=== PATIENT | male | born 1955 | race Caucasian/White ===

== ENCOUNTER 2018-12-20 11:28 | Outpatient (CLI) | payer BC, SELFPAY ==
--- NOTE | 2018-12-20 11:25 | DI.RAD_ITS ---
SYMPTOMS/DIAGNOSIS: LEFT KNEE PAIN LEFT KNEE: Three views. No priors. There is narrowing in the medial femorotibial joint space and the patellofemoral joint. Periarticular spurring is seen involving all three joint compartments. There is chondrocalcinosis present. An orthopedic staple is seen in the medial tibial plateau. No acute fracture or dislocation is seen. Vascular calcifications are present in the soft tissues. IMPRESSION: Moderate arthritic changes of the left knee.
== END 2018-12-20 11:48 ==
PROVIDERS: PCP Emergency Medicine; Visit Provider Orthopaedic Surgery
DX: M25.562 Pain in left knee (principal); M17.12 Unilateral primary osteoarthritis, left knee
CPT/HCPCS: 73562

== ENCOUNTER 2019-04-01 11:44 | Outpatient (CLI) | payer BC, SELFPAY ==
[2019-04-01 12:29] LABS: HCT 46.1 % (40.0-50.0); HGB 15.7 g/dL (13.5-17.5); Mean Corp. HGB Concentration 34.1 g/dL (32.0-36.0); Mean Corpuscular Hemoglobin 31.9 pg (27.0-33.0); Mean Corpuscular Volume 93.7 fL (80-95); Mean Platelet Volume 10.6 fL (8.0-11.0); Platelet Count 211 x1000/uL (130-400); RBC 4.92 m/cumm (4.50-6.00); RBC Distribution Width 12.5 % (11.8-14.1); White Blood Cell Count 5.37 k/cumm (4.4-10.8)
[2019-04-01 12:43] LABS: Prothrombin Time 9.8 sec (9.3-11.0)
[2019-04-01 13:11] LABS: ALT 36 U/L (12-78); AST 23 U/L (15-37); Albumin 3.9 g/dL (3.4-5.0); Alkaline Phosphatase 41 U/L (46-116); Anion Gap 12.3 mmol/L (3-11); BUN 15 mg/dL (7-18); Bilirubin, Total 0.8 mg/dL (0.2-1.0); CO2 23.7 mmol/L (21.0-32.0); CREATININE 0.68 mg/dL (0.70-1.30); Calcium 9.2 mg/dL (8.5-10.1); Chloride 103 mmol/L (98-107); GGT 44 U/L (15-85); Glucose 92 mg/dL (70-100); Potassium 4.2 mmol/L (3.5-5.1); Sodium 139 mmol/L (136-145); TSH 0.99 uIU/mL (0.358-3.74); Total Protein 6.9 g/dL (6.4-8.2)
== END 2019-04-01 12:04 ==
PROVIDERS: PCP Emergency Medicine; Visit Provider Emergency Medicine
DX: F10.10 Alcohol abuse, uncomplicated (principal); F10.20 Alcohol dependence, uncomplicated; E05.90 Thyrotoxicosis, unspecified without thyrotoxic crisis or storm
CPT/HCPCS: 36415; 80053; 85027; 82977; 84443; 85610

== ENCOUNTER 2020-02-16 16:13 | Emergency (ER) | payer BC, SELFPAY ==
[2020-02-16 16:15] VITALS: BP 159/88; PULSE 79; RESP 14; TEMP 36.4; O2SAT 98
[2020-02-16] MEDS: Doxycycline Hyclate 100 MG CAP 200 MG PO (16:50)
--- NOTE | 2020-02-16 16:51 | ED.GENADUL_ITS ---
Discharge Plan Disposition Patient Disposition: HOME Condition: Stable Discharge Details Chief Complaint: RashLesion Clinical Impression: Tick bite of abdomen Primary Care Provider: David Dominique ED Provider: Cassie Prakash Home Meds and New Rx's Prescriptions: Continued amlodipine 10 mg tablet 10 mg PO DAILY Qty: 90 RF: 3 losartan 100 mg tablet 100 mg PO DAILY Qty: 90 RF: 3 ibuprofen 600 MG tablet 600 mg PO Q6H PRN Qty: 180 RF: 0 sertraline 100 mg tablet 100 mg PO DAILY Qty: 90 RF: 0 naltrexone 50 mg tablet 50 mg PO DAILY Qty: 90 RF: 3 multivitamin [Multi-Day] 1 EACH tablet 1 tab PO DAILY RF: 0 Discharge Instructions Instructions: Lyme Disease (ED), Tick Bite (ED) Additional Instructions: Wash area with soap and water once or twice daily and apply topical antibiotic ointment and a Band-Aid to the wound. Observe for any signs or symptoms of Lyme disease as discussed. Specifically observe for headache, joint pain, fatigue, fever or rash as discussed. Please review information regarding Lyme. You received doxycycline 200 mg today in attempts to prevent Lyme disease. As discussed please avoid and use additional sun precaution if exposed to sun due to risk of burning in the next 3 days. Recheck with PCP for any concerning symptoms or return to the emergency room if needed. Return sooner for any worsening or concerns Medical Decision Making Is a 64-year-old patient presenting for a tick bite embedded into the left flank of the abdomen. Patient is asymptomatic at this time. Tick seems to have been embedded for 1 day although patient has been working in the yard for several days and it is possible that this to has been embedded for greater than 48 hours therefore will give prophylactic dose of doxycycline. Tick removed partially with head embedded. Area prepped, less than 1 cc of lidocaine focally, 0.5 cm superficial skin removed with tick embedded. Patient tolerated with no diff iculty. Antibiotic and dressing placed. Discussed doxycycline side effects including sun exposure. Patient reports his understanding. Information regarding tick bites discussed, signs and symptoms for which patient should observe discussed. Discussed option of tick testing. Patient declines at this time. The patient was stable and requested discharge. Prior to discharge, my usual and customary return precautions were reviewed with the patient - this included follow-up instructions and reasons to return to the Emergency Department if conditions worsens, does not improve as expected, or other new concerns arise. HPI General Date/Time Provider Initiated Documentation: 02/16/20 16:14 . HPI Narrative: This is a 64-year-old patient presenting for concerns of a tick bite. Patient reports tick bite to the left flank area. Patient reports he has been working in his yard for the last several days. Patient noted a tick bite this afternoon. Unable to fully remove at home. Patient reports he is asymptomatic otherwise. No mental status changes. No headache, dizziness, nausea, vomiting, fever, chills, body ache. No joint pain. Denies rash. Patient does have a mild amount of erythema surrounding the tick bite. Patient denies any fatigue. Energy normal. No chest pain, difficulty breathing. No other concerns or complaints. Related Data Home Medications Medication Instructions Recorded Confirmed ibuprofen 600 mg PO Q6H PRN #180 tab-cap 03/27/15 02/16/20 multivitamin [Multi-Day] 1 tab PO DAILY 05/10/15 02/16/20 amlodipine 10 mg tablet 10 mg PO DAILY #90 tab 07/01/19 02/16/20 losartan 100 mg tablet 100 mg PO DAILY #90 tab 08/09/19 02/16/20 sertraline 100 mg tablet 100 mg PO DAILY #90 tab 11/29/19 02/16/20 naltrexone 50 mg tablet 50 mg PO DAILY #90 tab 12/07/19 02/16/20 Previous Rx's Medication Instructions Recorded amlodipine 10 mg tablet 10 mg PO DAILY #90 tab 07/01/19 losartan 100 mg tablet 100 mg PO DAILY #90 tab 08/09/19 sertraline 100 mg tablet 100 mg PO DAILY #90 tab 11/29/19 naltrexone 50 mg tablet 50 mg PO DAILY #90 tab 12/07/19 Allergies Allergy/AdvReac Type Severity Reaction Status Date / Time codeine Allergy Mild SKIN RASH Verified 02/16/20 16:20 hydrochlorothiazide AdvReac Intermediate Profuse Verified 02/16/20 16:20 diaphoresis General Stated Complaint: RashLesion DYLAN: 4 Review of Systems All systems reviewed & are unremarkable except as noted in HPI and below PFSH Surgical History (Updated 03/29/19 @ 16:46 by Mariluz Lewis) Appendectomy Arthroplasty of knee left 1981 right 1998 Colonoscopy - MAC (05/30/13) 2007; TUBULAR ADENOMA 05/30/13 Repair, ACL LEFT Replacement of total knee joint (05/16/15) RIGHT KNEE/DR. JOSUE Family History Mother Personal history of malignant neoplasm Father Acute ill-defined cerebrovascular disease Grandfather Heart disease Grandfather No problems noted. Grandmother No problems noted. Grandmother No problems noted. Social History Smoking/Tobacco Use Status: Never Alcohol Intake: former Substance use type: does not use Details: alcohol free for months now Do you feel safe at home: Yes Do you feel safe in your relationship?: Yes Exam Narrative Exam Narrative: CONST: Healthy appearing patient, in no acute distress. Well hydrated. Alert and oriented. HENMT: Head nomocephalic, normal to inspection. Atraumatic. Hearing grossly normal. EYES: General normal appearance. Alignment normal. Eyelids normal. Conjunctiva normal. NECK: Normal visual inspection. FROM. Trachea midline. No Midline tenderness. CHEST: Normal insepection of the chest. RESP: Normal respiratory effort. Speaking full sentences. No cough. No audible wheezing. No retractions. CARDIO: No JVD. MUSCULOSKELETAL: Normal Gait. FROM of all extremities. SKIN: Normal. Dry. No rashes. Patient has a left lateral abdominal tick bite noted. Tick is embedded. 1 cm of surrounding erythema. NEURO: Alert and awake. Speech clear. PSYCH: Normal affect. Cooperative. Course Vital Signs Vital signs: Vital Signs Temperature 36.4 C L 02/16/20 16:15 Pulse 79 02/16/20 16:15 Respiratory Rate 14 02/16/20 16:15 Blood Pressure 159/88 H 02/16/20 16:15 Pulse Oximetry 98 02/16/20 16:15 Temperature 36.4 C L 02/16/20 16:15 Temperature Source Skin 02/16/20 16:15 Pulse 79 02/16/20 16:15 Respiratory Rate 14 02/16/20 16:15 Respiratory Effort 02/16/20 16:20 Blood Pressure 159/88 H 02/16/20 16:15 Blood Pressure Position Sitting 02/16/20 16:15 Pulse Oximetry 98 02/16/20 16:15 Oxygen Delivery Method Room Air 02/16/20 16:15 Oxygen Flow Rate 0 02/16/20 16:15 Pain Level 2 02/16/20 16:15 Comment 02/16/20 16:15 Procedures Foreign Body Removal Time Out Performed: yes Site: left Description of foreign body: insect (Tick) Sedation/Analgesia: other (1% lidocaine) Technique: incision made to facilitate removal (11 blade to remove superficial skin with embedded tick ) Complications: none
== END 2020-02-16 17:00 | disposition home or self-care (01) ==
PROVIDERS: Emergency Provider Physician Assistant; PCP Emergency Medicine
DX: S31.151A Open bite of abdominal wall, left upper quadrant without penetration into peritoneal cavity, initial encounter (principal); W57.XXXA Bitten or stung by nonvenomous insect and other nonvenomous arthropods, initial encounter; I10 Essential (primary) hypertension
CPT/HCPCS: 99283

== ENCOUNTER → 2020-07-27 08:00 | Outpatient (BNVA) | payer MEDICARE, OTHER, SELFPAY | PROVIDERS: PCP Emergency Medicine; Referring Provider Emergency Medicine; Visit Provider Physical Therapy Assistant | DX: Z12.11 Encounter for screening for malignant neoplasm of colon (principal); Z86.010 Personal history of colon polyps ==

== ENCOUNTER 2020-08-02 02:26 | Outpatient (CLI) | payer MEDICARE, OTHER, SELFPAY ==
[2020-08-03 22:07] LABS: SARS-CoV-2 RNA Source Nasal/Nares
[2020-08-03 22:08] LABS: SARS-CoV-2 RNA Not Detected (NotDetected)
== END 2020-08-02 02:46 ==
PROVIDERS: PCP Emergency Medicine; Visit Provider Surgery
DX: Z01.818 Encounter for other preprocedural examination (principal)
CPT/HCPCS: U0003

== ENCOUNTER 2020-08-06 06:50 | Day surgery (SDC) | payer MEDICARE, OTHER, SELFPAY ==
--- NOTE | 2020-08-06 06:56 | W.COLOREPORT ---
Date of service: 08/06/20 Time of Service: : Colonoscopy Report Date of procedure: 08/06/20 Pre-op diagnosis general: Hx of polyps Post-op diagnosis procedure note: same (one polyp) Procedure: Colonoscopy with polypectomy Surgeon: Santa Centeno Anesthesia proc note operative: other (General/ASA 2/Sussy Langley CRNA) Estimated blood loss (mL): 2 Pathology: other (Ascending colon) Complications: None Disposition: same day Indications: The patient is here for Colonoscopy pre-op. His last screening was in 2012 and was remarkable for adenomatous polyps He has no family history of colon cancer. He has not had any bowel habit changes. -Discussed colonoscopy bowel prep as well as the procedure. Discussed possible complications of the procedure to include bleeding, pain, perforation, missed small lesion/polyp, sore throat, aspiration and adverse reaction to the medications. Questions were answered to patient?s satisfaction. No guarantees were implied or given. Prep: Miralax/Dulcolax Procedure Start Time: : Procedure End Time: : Retraction Time: 16 minutes Findings: one small polyp Procedure Description: After informed consent was obtained the patient was taken to the procedure room and placed in a left decubitous position. Monitors were applied and a time out was done. The patients name, date of , procedure, allergies to medications and metal in their body was reviewed. The patient was then sedated. Once sedated and comfortable a rectal exam was done. External exam was normal. Internal exam revealed a normal sphincter tone and no palpable masses. The prostate felt smooth, slightly enlarged. The scope was then introduced and retro-flexed. No internal hemorrhoids were identified. The scope was then advanced to the cecum without difficulty. The ileocecal valve and appendiceal orifice were identified. The prep was good. The scope was then slowly retracted over 16 minutes back into the rectum. Polyps were removed with cold forceps in the ascending colon. There were a few scattered diverticula in the sigmoid colon. The scope was removed and the patient was woken up and taken back to Same day surgery in stable condition. The patient tolerated the procedure well and there were no immediate complications. Follow up: The patient should follow up in 5 years unless they develop changes in bowel habits or other new gastrointestinal complaints.
--- NOTE | 2020-08-06 06:57 | W.PM.DSUDISC ---
Discharge Plan Disposition Patient Disposition: HOME Condition: Good Discharge Details Reason For Visit: Hx of polyps/Colonoscopy Attending Provider: Santa Centeno Primary Care Provider: David Dominique Home Meds and New Rx's Prescriptions: Continued ibuprofen 600 MG tablet 600 mg PO Q6H PRN Qty: 180 RF: 0 disulfiram 250 mg tablet 250 mg PO DAILY Qty: 90 RF: 3 amlodipine 10 mg tablet 10 mg PO DAILY Qty: 90 RF: 3 multivitamin [Multi-Day] 1 EACH tablet 1 tab PO DAILY RF: 0 losartan 100 mg tablet 100 mg PO HS RF: 0 Discontinued polyethylene glycol 3350 17 gram/dose powder 238 g PO ONCE Qty: 238 RF: 0 bisacodyl [Dulcolax (bisacodyl)] 5 mg tablet,delayed release (DR/EC) 5 mg PO ONCE Qty: 4 RF: 0 Discharge Instructions Instructions: Diverticulosis (DC), Colorectal Polyps (DC) Additional Instructions: Findings: 1 small polyp a few scattered diverticula in the left sided colon (sigmoid) Follow up: 5 years most likely Please call if you develop: fevers >101.5 Nausea or Vomiting Abdominal pain that is not transient DAY SURGERY UNIT POST ENDOSCOPY INSTRUCTIONS 1. Because there will be medication in your system for the next 24 hours, you may feel a little sleepy. Your coordination will be affected. Therefore: a. Do not drive or operate dangerous equipment for 24 hours. b. Do not drink alcohol beverages for 24 hours (not even beer). c. Plan to go home and rest for the day. 2. Generally there are no restrictions on your activity after a day or so has gone by, but you may feel a bit fatigued for a few days. 3 After you arrive home you may have a light meal and return to a normal diet as you can tolerate it without feeling sick to your stomach. 4. After surgery, you may feel pain or discomfort. This should be only transient, but if it persists please contact your doctor. 5. If there are any questions regarding the findings of your procedure, please feel free to contact your doctor. 6. If you are unable to contact your doctor with a problem, contact the hospital at [phone]. 7. Continue all your regular medications unless directed otherwise. I understand the above instructions and have no questions. Signature of Patient or Responsible Adult Escort Date/Time Name of Responsible Adult Escort Signature of Nurse Date/Time Activity:: Activity as Tolerated Diet:: High Fiber diet Discharge Orders Discharge Orders: Discharge Order (Routine); Ordered 08/06/20 Ordered By: Santa Centeno
[2020-08-06 07:30] VITALS: BP 133/89; PULSE 74; RESP 16; TEMP 36.4; O2SAT 99
[2020-08-06] MEDS: Lactated Ringers 1,000 ML 80 ML IV (08:30)
--- NOTE | 2020-08-06 09:34 | BOWEL_PTH ---
PATIENT: Chetan Carcamo LOC: [facility] U#:[id number] AGE/SX: 65/M ROOM: RE08/06/[address]: Santa Centeno MD : 1955 BED: DIS: 08/06/2020 SPEC #: [id number] RECD: 08/06/20 12:50 STATUS: DAYSI REQ #: [id number] RIC: 08/06/20 09:[address]: Santa Centeno DEPT: Surgical Specimen RECD BY: Ginette Umaña ENTERED: 08/06/20 12:51 SP TYPE: Bowel OTHR DR: David Dominique DO Tissues: 1 - BIOPSY BOWEL Procedures: GROSS AND MICRO LEVEL 4 Comments: [id number]
[2020-08-06 10:19] VITALS: BP 125/72; PULSE 61; RESP 17; TEMP 36.1; O2SAT 96
== END 2020-08-06 10:41 | disposition home or self-care (01) ==
PROVIDERS: PCP Emergency Medicine; Visit Provider Surgery
PROC: 0DJD8ZZ Inspection of Lower Intestinal Tract, Via Natural or Artificial Opening Endoscopic (ICD-10-PCS; CPT 45378; principal; 2020-08-06 09:15)
DX: Z12.11 Encounter for screening for malignant neoplasm of colon (principal); D12.2 Benign neoplasm of ascending colon; I10 Essential (primary) hypertension; F10.10 Alcohol abuse, uncomplicated; Z86.010 Personal history of colon polyps
CPT/HCPCS: 45380; 88305; J2001

== ENCOUNTER 2020-08-07 10:36 | Outpatient (REF) | payer MEDICARE, OTHER, SELFPAY ==
[2020-08-07 14:23] LABS: Anion Gap 6.5 mmol/L (3-11); BUN 15 mg/dL (7-18); CO2 27.5 mmol/L (21.0-32.0); CREATININE 0.89 mg/dL (0.70-1.30); Calcium 9.4 mg/dL (8.5-10.1); Chloride 106 mmol/L (98-107); Glucose 101 mg/dL (74-106); Potassium 4.4 mmol/L (3.5-5.1); Sodium 140 mmol/L (136-145); TSH 0.49 uIU/mL (0.36-3.74); Vitamin B12 1512 pg/mL (193-986)
[2020-08-08 15:59] LABS: PSA, Screening 0.8 ng/mL (0-4.5)
== END 2020-08-07 10:56 ==
LOC: NCHCN 10:36
PROVIDERS: PCP Emergency Medicine; Visit Provider Emergency Medicine
DX: E03.9 Hypothyroidism, unspecified (principal); I10 Essential (primary) hypertension; G62.9 Polyneuropathy, unspecified; Z12.5 Encounter for screening for malignant neoplasm of prostate
CPT/HCPCS: 80048; 84153; 82607; 84443

== ENCOUNTER 2020-09-03 03:00 | Outpatient (CLI) | payer MEDICARE, OTHER, SELFPAY ==
[2020-09-04 19:02] LABS: COVID-19 RT-PCR UVMMC Result Negative (Negative)
== END 2020-09-03 03:20 ==
PROVIDERS: PCP Emergency Medicine; Visit Provider Emergency Medicine
DX: Z20.828 Contact with and (suspected) exposure to other viral communicable diseases (principal); Z11.59 Encounter for screening for other viral diseases
CPT/HCPCS: U0003

== ENCOUNTER 2020-09-10 09:23 | Outpatient (CLI) | payer MEDICARE, OTHER, SELFPAY ==
--- NOTE | 2020-09-10 08:45 | DI.RAD_ITS ---
EXAM: XR KNEE LT 4V AP,LAT,STEPHEN,PAT CLINICAL HISTORY: left knee pain. TECHNIQUE: 2D digital imaging was performed. COMPARISON: CR RIGHT KNEE LIMITED 1 OR 2 VIEW from 05/16/2015 FINDINGS: There is no evidence of acute fracture. There is a moderate-sized joint effusion in the suprapatella r bursa. There is a surgical staple device in the medial tibia at the junction of the epiphysis and metaphysis. There are calcifications seen adjacent to the medial aspect of the medial femoral condyl e. Possibly related to prior MCL injury and repair. The main finding is advanced osteoarthritic degenerative changes in all 3 compartments involving join t space narrowing and osteophytes and there is also an element of chondrocalcinosis evident. Degener ative subarticular cyst is seen in the sub spinous tibial plateau. Vascular calcification is noted. IMPRESSION: Advanced degenerative changes. Joint effusion. Previous surgery as described above. Chondrocalcino sis. I note this patient has a prosthesis in the opposite-right knee performed May 2015. DATA REPOSITORY: RADIATION DOSE DELIVERED:
== END 2020-09-10 09:43 ==
PROVIDERS: PCP Emergency Medicine; Referring Provider Emergency Medicine; Visit Provider Student in an Organized Health Care Education/Training Program
DX: M17.12 Unilateral primary osteoarthritis, left knee (principal); M11.262 Other chondrocalcinosis, left knee; M25.462 Effusion, left knee; M25.562 Pain in left knee; Z96.651 Presence of right artificial knee joint; M65.341 Trigger finger, right ring finger; R20.0 Anesthesia of skin; R20.2 Paresthesia of skin
CPT/HCPCS: 20610; 99214; 73564; J1040

== ENCOUNTER 2020-09-18 09:10 | Day surgery (SDC) | payer MEDICARE, SELFPAY ==
[2020-09-18 09:19] VITALS: BP 141/73; PULSE 63; RESP 18; TEMP 36.2; O2SAT 100
--- NOTE | 2020-09-18 09:56 | W.PM.DSUDISC ---
Discharge Plan Disposition Patient Disposition: HOME Condition: Good Discharge Details Reason For Visit: RRF Trigger Finger Attending Provider: Julio Lopez Primary Care Provider: David Dominique Home Meds and New Rx's Prescriptions: New acetaminophen [Tylenol] 325 mg Tablet 650 mg PO Q6H PRN PRNQty: 60 RF: 0 Continued disulfiram 250 mg tablet 250 mg PO DAILY Qty: 90 RF: 3 amlodipine 10 mg tablet 10 mg PO DAILY Qty: 90 RF: 3 losartan 100 mg tablet 100 mg PO HS Qty: 90 RF: 4 multivitamin [Multi-Day] 1 EACH tablet 1 tab PO DAILY RF: 0 garlic 500 mg Capsule 500 mg PO DAILY Qty: 30 RF: 0 ibuprofen 600 MG tablet 600 mg PO Q6H PRN Qty: 180 RF: 0 Discharge Instructions Stand Alone Forms: John Potter Finger Release Referrals: Julio Lopez MD [ [facility] STAFF PHYSICIAN] - Activity:: Elevate Remove Dressings/Wound Care:: 48 hours Shower/Bathe:: 48 hours Diet:: As Tolerated Discharge Orders Discharge Orders: Discharge Order (Routine); Ordered 09/18/20 Ordered By: Julio Lopez DS: Diagnosis Discharge Diagnosis (1) Trigger finger, right ring finger: Status: Acute
[2020-09-18] MEDS: Sodium Bicarbonate 50 MEQ/50 ML VIAL (10:43)
--- NOTE | 2020-09-18 11:09 | ROE_ITS ---
Date of service: 09/18/20 Time of Service: 11:09 Operative Note Operative Note DATE OF PROCEDURE: 09/18/20 PRE-OP DIAGNOSIS: Right Ring Finger Trigger Finger POST-OP DIAGNOSIS: same PROCEDURE: Trigger Finger Release - Right Ring Finger SURGEON: Julio Lopez ANESTHESIA: local PATHOLOGY: none sent COMPLICATIONS: None Patient was transported to: same day Patient's condition: stable Indications: I have seen Chetan in clinic for symptoms of a trigger finger. The catching, clicking, locking, and pain limited function. The diagnosis of trigger finger was evident. The symptoms had not responded to conservative measures. I discussed trigger finger release with the patient. I reviewed the risks of the procedure to include, but not limited to, bleeding, infection, pain, stiffness, incomplete release, damage to nerves or vessels, continued catching, recurrence. Despite these risks, the patient elected to proceed. Findings: There was a tightened and thickened A1 larry which was released. The flexor tendons were inspected and the patient was able to move the finger without any catching, clicking, or locking. Procedure Description: Chetan was greeted in the preoperative holding area where the correct side was identified and marked. The consent was reviewed with the patient and signed. All questions were answered. Chetan was taken back to the operating room. The patient was placed into the supine position on the operating room table with the right arm on an arm board. All bony prominences were well padded. No prophylactic antibiotics were administered since this was a clean, elective hand surgical case. The right arm was then prepped with Chloraprep and draped in a standard fashion with stockinette and extremity drape. A timeout to confirm correct identity, side and site, procedure, allergies, anesthesia, and medical concerns was performed. The surgical site was marked as a longitudinal incision directly over the A1 larry of the involved digit. This was confirmed with palpation during finger flexion. This area, overlying the metacarpal head, was then anesthetized with 1% Lidocaine. The patient tolerated this well and once the anesthetic had setup, the procedure began. A longitudinal incision was made through skin only, approximately 1cm. The deep tissues were dissected bluntly. Once the A1 larry and flexor tendons were identified the soft tissue including neurovascular structures were retracted medially and laterally. There were no crossing str uctures over the A1 larry. The proximal edge of the larry was identified and the larry was incised with tenotomy scissors. There was a release of the tendons once this was fully released. The tendons were then removed from the wound and inspected. Excess synovium was resected. The tendons were then returned and the patient was asked to move the finger into deep flexion and back to extension. There was no recreation of the pre-operative symptoms. The hand was then once more inspected for any A0 larry or area of possible constriction. The wound was then irrigated and the skin was closed with a 4-0 Nylon. This was dressed with gauze and a Conform dressing. The patient tolerated the procedure well and was returned to the Same Day Surgery area in a stable condition suffering no known complication.
== END 2020-09-18 11:21 | disposition home or self-care (01) ==
PROVIDERS: PCP Emergency Medicine; Visit Provider Student in an Organized Health Care Education/Training Program
PROC: (CPT 26055; principal; 2020-09-18 11:30)
DX: M65.341 Trigger finger, right ring finger (principal)
CPT/HCPCS: 26055

== ENCOUNTER → 2021-07-22 14:37 | Outpatient (BNVA) | payer MEDICARE, SELFPAY | PROVIDERS: PCP Emergency Medicine; Referring Provider Emergency Medicine; Visit Provider Student in an Organized Health Care Education/Training Program | DX: M17.12 Unilateral primary osteoarthritis, left knee (principal) | CPT/HCPCS: 20610; J1040 ==

== ENCOUNTER → 2021-11-21 10:21 | Outpatient (BNVA) | payer MEDICARE, SELFPAY | PROVIDERS: PCP Family Medicine; Referring Provider Family Medicine; Visit Provider Student in an Organized Health Care Education/Training Program | DX: M17.12 Unilateral primary osteoarthritis, left knee (principal) | CPT/HCPCS: 20610; J1040 ==

== ENCOUNTER → 2022-01-28 13:55 | Outpatient (BNVA) | payer MEDICARE, SELFPAY | PROVIDERS: PCP Family Medicine; Referring Provider Family Medicine; Visit Provider Nurse Practitioner Adult Health | DX: G56.02 Carpal tunnel syndrome, left upper limb (principal); G56.22 Lesion of ulnar nerve, left upper limb | CPT/HCPCS: 95908; 99203; 99214 ==

== ENCOUNTER → 2022-02-06 08:04 | Outpatient (BNVA) | payer MEDICARE, SELFPAY | PROVIDERS: PCP Family Medicine; Referring Provider Family Medicine; Visit Provider Student in an Organized Health Care Education/Training Program | DX: G56.02 Carpal tunnel syndrome, left upper limb (principal); G56.22 Lesion of ulnar nerve, left upper limb | CPT/HCPCS: 99212 ==

== ENCOUNTER 2022-02-14 01:40 | Outpatient (CLI) | payer MEDICARE, SELFPAY ==
[2022-02-14 16:55] LABS: ALT 49 U/L (16-63); AST 19 U/L (15-37); Albumin 3.8 g/dL (3.4-5.0); Alkaline Phosphatase 51 U/L (46-116); Anion Gap 11.7 mmol/L (3-11); BUN 19 mg/dL (7-18); Bilirubin, Total 0.7 mg/dL (0.2-1.0); CO2 23.3 mmol/L (21.0-32.0); CREATININE 1.1 mg/dL (0.70-1.30); Calcium 8.9 mg/dL (8.5-10.1); Calculated LDL 138 mg/dL (<100); Chloride 104 mmol/L (98-107); Cholesterol 208 mg/dL (<200); Glucose 90 mg/dL (74-106); HDL Cholesterol 54 mg/dL (40-60); Potassium 4.2 mmol/L (3.5-5.1); Sodium 139 mmol/L (136-145); Total Protein 6.4 g/dL (6.4-8.2); Triglyceride 84 mg/dL (<150)
[2022-02-17 10:44] LABS: PSA, Screening 0.7 ng/mL (<=4.5)
[2022-02-17 11:13] LABS: Hepatitis C Ab w Rflx HCV PCR Negative (Negative)
[2022-02-17 11:40] LABS: HIV-1/2 Ag & Ab Screen Negative (Negative)
== END 2022-02-14 01:41 | disposition home or self-care (01) ==
LOC: LBO 01:40
PROVIDERS: PCP Family Medicine; Visit Provider Family Medicine
DX: I10 Essential (primary) hypertension (principal); E78.5 Hyperlipidemia, unspecified; Z12.5 Encounter for screening for malignant neoplasm of prostate; Z11.59 Encounter for screening for other viral diseases; Z11.4 Encounter for screening for human immunodeficiency virus [HIV]
CPT/HCPCS: 36415; 80053; 80061; 84153; 86803; 87389

== ENCOUNTER 2022-06-11 09:44 | Day surgery (SDC) | payer MEDICARE, SELFPAY ==
--- NOTE | 2022-06-11 07:46 | W.PM.DSUDISC ---
Discharge Plan Disposition Patient Disposition: HOME Condition: Good Discharge Details Reason For Visit: Left carpal tunnel syndrome Attending Provider: Julio Lopez Primary Care Provider: Trevor Steel Home Meds and New Rx's Prescriptions: New hydrocodone-acetaminophen 5-325 mg tablet 1 tab PO Q6H PRN (Reason: severe pain) Qty: 4 0RF Rx Instructions: Take one tablet up to every 6 hours as needed for severe postoperative pain acetaminophen 500 mg tablet 500 mg PO Q6H PRN (Reason: pain) Qty: 60 2RF ibuprofen 600 mg tablet 600 mg PO TID PRN (Reason: pain) Qty: 60 0RF Continued atenolol 25 mg tablet 25 mg PO DAILY Qty: 90 3RF losartan 100 mg tablet 100 mg PO DAILY Qty: 90 3RF sildenafil [Viagra] 100 mg tablet 100 mg PO DAILY PRN (Reason: sexual activity) Qty: 6 11RF amlodipine 10 mg tablet 10 mg PO DAILY Qty: 90 3RF disulfiram 250 mg tablet 250 mg PO HS garlic 500 mg Capsule 500 mg PO DAILY Qty: 30 0RF Discontinued ibuprofen 600 mg tablet 600 mg PO Q6H PRN Qty: 90 2RF Discharge Instructions Stand Alone Forms: John Savage Tunnel Release Referrals: Julio Lopez MD [ [facility] STAFF PHYSICIAN] - Equipment/Supplies: Sling Activity:: Elevate Remove Dressings/Wound Care:: 72 hours Shower/Bathe:: 72 hours Diet:: As Tolerated Discharge Orders Discharge Orders: Discharge Order (Routine); Ordered 06/11/22 Ordered By: Lilian Méndez
[2022-06-11 10:15] VITALS: BP 116/80; PULSE 54; RESP 20; TEMP 36.6; O2SAT 99
[2022-06-11] MEDS: Lactated Ringers 1,000 ML 80 ML IV (10:30)
--- NOTE | 2022-06-11 10:46 | W.ANESPRE ---
General Info Date of Service Date Performed: 06/11/22 Height: 5 ft 10 in Weight: 89.9 kg Body Mass Index (BMI): 28.4 Surgical Procedure: Operation Date: 06/11/22 13:25 Proposed Procedure Side Surgeon p Wrist ECTR Left Julio Lopez MD s Cubital Tunnel Release Left Julio Lopez MD Meds Allergies and Home Medications Allergies Allergy/AdvReac Type Severity Reaction Status Date / Time codeine Allergy Mild SKIN RASH Verified 06/10/22 14:44 hydrochlorothiazide AdvReac Intermediate Profuse Verified 06/10/22 14:44 diaphoresis Home Medication Medication Instructions Recorded garlic 500 mg capsule 500 mg PO DAILY #30 caps 09/18/20 amlodipine 10 mg tablet 10 mg PO DAILY #90 tabs 07/19/21 atenolol 25 mg tablet 25 mg PO DAILY #90 tabs 12/16/21 losartan 100 mg tablet 100 mg PO DAILY #90 tabs 02/18/22 sildenafil 100 mg tablet (Viagra) 100 mg PO DAILY PRN sexual 02/18/22 activity #6 tabs disulfiram 250 mg tablet 250 mg PO HS 06/10/22 acetaminophen 500 mg tablet 500 mg PO Q6H PRN pain #60 tabs 06/11/22 hydrocodone 5 mg-acetaminophen 325 1 tab PO Q6H PRN severe pain #4 06/11/22 mg tablet tabs ibuprofen 600 mg tablet 600 mg PO TID PRN pain #60 tabs 06/11/22 Current Visit Medications: Current Medications Generic Name Dose Route Start Last Admin Trade Name Freq PRN Reason Stop Dose Admin Acetaminophen 650 mg 06/11/22 07:40 Acetaminophen 325 Mg Tab PO Q4H PRN PRN Hydrocodone Bitart/Acetaminophen 0 tab 06/11/22 07:40 Hydrocodone 5/Acetaminophen 325 Tab PO Q3H PRN PRN Pain Ringer's Solution 1,000 mls @ 80 mls/hr 06/11/22 06:00 06/11/22 10:30 IV 07/10/22 23:59 80 mls/hr INFUSION EMILY Administration Cefazolin Sodium/Dextrose 2 gm in 50 mls @ 100 mls/hr 06/11/22 06:00 Ancef Duplex IVPB 06/11/22 16:00 PREOP EMILY IV Miscellaneous Supplies 1 each 06/11/22 06:00 Iv Access IV 07/10/22 23:59 DIRECTED EMILY Sodium Chloride 0 ml 06/11/22 06:00 Normal Saline Flush 10 Ml Syr IV 07/10/22 23:59 PRN PRN Sodium Chloride 0 ml 06/11/22 06:00 Normal Saline 10 Ml Vial IJ 07/10/22 23:59 DIRECTED PRN Sterile Water 0 ml 06/11/22 06:00 Water,Injection,Sterile 10 Ml Vial IJ 07/10/22 23:59 DIRECTED PRN PFSH Active Problems Active Problems: Problem Status Onset Code Basal cell carcinoma C44.91 Ulnar neuropathy of left upper extremity G56.22 Left carpal tunnel syndrome G56.02 Left knee DJD M17.12 Tubular adenoma ~07/2020 D36.9 Peripheral neuropathy G62.9 Hyperlipidemia E78.5 Essential hypertension 07/12/13 I10 Depressive disorder F32.9 Cervical spine disease 12/26/14 M48.9 Alcohol abuse F10.10 Surgical History Surgical History Appendectomy Arthroplasty of knee right 1998 Colonoscopy - MAC (05/30/13) 2007; TUBULAR ADENOMA 05/30/13 H/O hand surgery 2020-trigger finger Repair, ACL LEFT Replacement of total knee joint (05/16/15) RIGHT KNEE/DR. JOSUE Tobacco Smoking/Tobacco Use Status: Current every day Tobacco Type: smokeless tobacco Smokeless tobacco user: snuff Passive smoking exposure: Yes Second hand exposure: Yes Alcohol Alcohol Intake: former Substance Use Substance use: Never Substance use type: does not use Details: alcohol free for months now Vital Signs and Lab Results Vital Signs Most Recent Vital Signs in EMR: Most Recent Vital Signs Temp Pulse Resp BP Pulse Ox 36.6 C 54 L 20 116/80 99 06/11/22 10:15 06/11/22 10:15 06/11/22 10:15 06/11/22 10:15 06/11/22 10:15 Lab Results Blood Type / Crossmatch: No Data to Display Complete Blood Count: No Data to Display Complete Metabolic Panel: No Data to Display Liver Function Panel: No Data to Display Coagulation Panel: No Data to Display Cardiac Panel: No Data to Display Arterial Blood Gas: No Data to Display Venous Blood Gas: No Data to Display Pancreas Panel: No Data to Display Thyroid Panel: No Data to Display Infectious Disease: No Data to Display Blood Cultures: No Data to Display Toxicology Panel: No Data to Display Imaging and Studies Imaging and Studies Study information below may be from another EMR and interpreted by another provider. Please see original notes in EMR for more complete details. MRI Summary: 10/2014: narrowing at c6-7, c6-7 Anesthesia Assessment and Plan Anesthesia History Personal History: No History of Anesthesia Complications Family History: No Family History of Anesthesia Complications Exercise Tolerance Exercise Tolerance: Metabolic Equivalents>4 Cardiac & Pulmonary Exam Cardiac Exam: Normal S1/S2 Heart Sounds Pulmonary Exam: Clear Bilateral Breath Sounds Implantable Cardiac Device Does patient have a Pacemaker or an ICD?: No Airway Exam Known Difficult Airway: No Mallampati Class: 1 Mouth Opening: Normal (> 3cm) Thyromental Distance: Greater than 3 cm Neck Range of Motion: Limited ROM Neck Circumference: Normal Teeth Condition: Normal Dentition ASA Classification ASA Score: ASA 2 Emergency Case?: No NPO Status NPO Status: NPO Clears >2 hours, Solids >8 hours Anesthesia Plan Resuscitation Status: Full Code Anesthesia Technique: General Anesthesia Airway Planned: Natural Airway Monitors Used: Standard Monitors Preoperative Comments:: 67 yo male for carpal tunel/cubital tunel. Sig PMHx: peripheral neuropathy, HTN, depressive, former EtOH abuse, s/p cervical spine surg r/t narrowing tip of thumb numb on left and sometimes left hand will go numb with neck extension, smokeless tobacco. Previous Anes: without issues, Previous airway: none on file.
[2022-06-11 11:01] VITALS: BMI 28.4
--- NOTE | 2022-06-11 11:14 | W.PREOPHP ---
Assessment and Plan Assessment and plan (1) Left carpal tunnel syndrome: Status: Acute Assessment and plan: Chetan is a 67-year-old who has known carpal tunnel syndrome about the left side. He also has some mild cubital tunnel syndrome which we are not going to treat surgically today. This was discussed with him at length. I reviewed carpal tunnel release with him once again. I discussed the technical details of carpal tunnel release and that I perform an endoscopic release, but would make a larger, open, incision if necessary for visualization. I discussed the risks of the procedure to include, but not limited to, bleeding, infection, palmar pain, stiffness, damage to nerves, damage to vessels, damage to tendons, weakness, recurrence, and incomplete release. Given these risks, Chetan desires to proceed. History of Present Illness History of Present Illness Chief Complaint: Left Carpal Tunnel Syndrome Narrative: Chetan is a 67-year-old who has known carpal tunnel syndrome of the left side. He also has some mild cubital tunnel syndrome which has been diagnosed underproduction studies. At the previous office visit we discussed all the options. He was interested in proceeding with cubital tunnel syndrome just in case. However, his symptoms are very mild. Therefore, after discussion today we will proceed only with the left carpal tunnel release. He has had no other changes to his medical health. He denies any chest pain or shortness of breath. He continues have numbness and tingling and pain about the left hand. Review of Systems All systems reviewed & are unremarkable except as noted in HPI and below PFSH All Active Problems Basal cell carcinoma (Acute) Remote, chest wall Ulnar neuropathy of left upper extremity (Acute) Left carpal tunnel syndrome (Acute) Left knee DJD (Chronic) Depo-Medrol injection: 09/10/2020; 07/22/21; 11/21/21 Tubular adenoma (Acute ~07/2020) 2019-Dr. Christian Centeno, repeat colo 5 years-2024 Peripheral neuropathy (Acute) 2021-mild, predominantly on plantar surface of feet, idiopathic Hyperlipidemia (Acute) Essential hypertension (Acute 07/12/13) Depressive disorder (Acute) Cervical spine disease (Acute 12/26/14) Surgery magnidottir 01/26 Alcohol abuse (Acute) RECOVERING, on Antabuse, doing well as of 12/2021 Surgical History Appendectomy Arthroplasty of knee right 1998 Colonoscopy - MAC (05/30/13) 2007; TUBULAR ADENOMA 05/30/13 H/O hand surgery 2020-trigger finger Repair, ACL LEFT Replacement of total knee joint (05/16/15) RIGHT KNEE/DR. JOSUE Family History Mother , 69 Personal history of malignant neoplasm Father Acute ill-defined cerebrovascular disease Grandfather Heart disease Sister No problems noted. Brother No problems noted. Daughter No problems noted. Social History Smoking/Tobacco Use Status: Current every day Tobacco Type: smokeless tobacco Tobacco: How many years used: 25 Smokeless tobacco user: snuff Second Hand Exposure: Yes Smoking risk assessment performed?: Yes Alcohol Intake: former Drug use: Never Substance use type: does not use Details: alcohol free for months now Caregiver/Support person: No Household members: spouse Housing: house Communication Needs: None Pets and animals: No Sexually active: Yes Do you think of yourself as: straight/heterosexual Current gender identity: male What is your relationship status?: Panel score (0-1 are the most socially isolated patients): 1 What type of physical activity do you participate in: walking Duration: 15-30 minutes/day Special teo needs: No Do you feel safe at home: Yes Do you feel safe in your relationship?: Yes Meds Allergies and Home Medications Allergies Allergy/AdvReac Type Severity Reaction Status Date / Time codeine Allergy Mild SKIN RASH Verified 06/10/22 14:44 hydrochlorothiazide AdvReac Intermediate Profuse Verified 06/10/22 14:44 diaphoresis Home Medications Medication Instructions Recorded Confirmed Type garlic 500 mg capsule 500 mg PO DAILY #30 caps 09/18/20 06/11/22 Rx amlodipine 10 mg tablet 10 mg PO DAILY #90 tabs 07/19/21 06/11/22 Rx atenolol 25 mg tablet 25 mg PO DAILY #90 tabs 12/16/21 06/11/22 Rx losartan 100 mg tablet 100 mg PO DAILY #90 tabs 02/18/22 06/11/22 Rx sildenafil 100 mg tablet (Viagra) 100 mg PO DAILY PRN sexual 02/18/22 06/10/22 Rx activity #6 tabs disulfiram 250 mg tablet 250 mg PO HS 06/10/22 06/11/22 History acetaminophen 500 mg tablet 500 mg PO Q6H PRN pain #60 tabs 06/11/22 Rx hydrocodone 5 mg-acetaminophen 325 1 tab PO Q6H PRN severe pain #4 06/11/22 Rx mg tablet tabs ibuprofen 600 mg tablet 600 mg PO TID PRN pain #60 tabs 06/11/22 Rx Exam Resp Auscultation: clear to auscultation bilaterally Cardio Rate: regular rate Rhythm: regular rhythm Results Last Vital Signs Temp 36.6 C 06/11/22 10:15 Pulse 54 L 06/11/22 10:15 Resp 20 06/11/22 10:15 BP 116/80 06/11/22 10:15 Pulse Ox 99 06/11/22 10:15
[2022-06-11] MEDS: ceFAZolin 2 GM/50 ML BAG IVPB (11:15)
[2022-06-11] MEDS: Bupivacaine 0.25% Pres-Free W/EPI 30 ML VIAL (11:27)
[2022-06-11 11:33] VITALS: BP 104/19; PULSE 54; RESP 17; TEMP 36.5; O2SAT 94
[2022-06-11 12:04] VITALS: BP 127/83; PULSE 50; RESP 16; TEMP 36.5; O2SAT 98
--- NOTE | 2022-06-11 12:08 | W.ANESPOSTOP ---
Postoperative Evaluation Date, Time and Location Date Performed: 06/11/22 Time Performed: 12:08 Patient Location: Day Surgery Unit Vital Signs Most Recent Imported Vital Signs: Most Recent Vital Signs Temp Pulse Resp BP Pulse Ox 36.5 C 50 L 16 127/83 98 06/11/22 12:04 06/11/22 12:04 06/11/22 12:04 06/11/22 12:04 06/11/22 12:04 Pain Score Most Recent Pain Score: Most Recent Pain Score Pain Level 0 06/11/22 12:04 Assessment Mental Status: Awake (Alert & Oriented to Patient Baseline) Airway and Respiratory Function: Patent airway with normal (patient baseline) respiratory exam Cardiovascular Function: Hemodynamically Stable Hydration Status: Adequately Hydrated Nausea & Vomiting: No Nausea or Vomiting Pain: Pt. Denies Any Pain Peripheral Nerve Block: Patient did not receive a nerve block
--- NOTE | 2022-06-11 16:00 | W.PM.OP ---
Date of service: 06/11/22 Time of Service: 12:00 Operative Note Operative Note DATE OF PROCEDURE: 06/11/22 PRE-OP DIAGNOSIS: Left Carpal Tunnel Syndrome POST-OP DIAGNOSIS: same PROCEDURE: Left Endoscopic Carpal Tunnel Release SURGEON: Julio Lopez ANESTHESIA TYPE: General:No Airway Refer to Anesthesia Record ESTIMATED BLOOD LOSS: 0 PATHOLOGY: none sent TOURNIQUET TIME: 6 COMPLICATIONS: None Patient was transported to: same day Patient's condition: stable Indications: I have seen Chetan in clinic for symptoms of carpal tunnel syndrome. The numbness, tingling, and pain limited function. Clinical exam findings confirmed the diagnosis of carpal tunnel syndrome. Nonoperative measures such as bracing, time, activity modifications had been tried but disability and pain persisted. I discussed carpal tunnel release with the patient. I reviewed the risks of the procedure to include, but not limited to, bleeding, infection, pain, stiffness, incomplete release, damage to nerves or vessels, persistent numbness, recurrence. Despite these risks, the patient elected to proceed. Findings: There was tightened carpal tunnel. This was dilated and released successfully with the endoscopic with increased space within the tunnel. The antebrachial fascia was released proximally freeing the median nerve at the wrist. Procedure Description: Chetan was greeted in the preoperative holding area where the correct side was identified and marked. The consent was reviewed with the patient and signed. The history and physical was updated. All questions were answered. A was taken back to the operating room. The patient was placed into the supine position on the operating room table with the left arm on an arm board. A nonsterile tourniquet was placed high onto the arm. All bony prominences were well padded. Prophylactic antibiotics in the form of Cefazolin were administered. The left arm was then prepped with Chloraprep and draped in a standard fashion with stockinette and extremity drape. A timeout to confirm correct identity, side and site, procedure, allergies, anesthesia, and medical concerns was performed. The surgical site was marked in the volar wrist creases in line with the radial border of the fourth ray. This area was anesthetized with approximately 6cc of 1% Lidocaine. The limb was then exsanguinated with an Esmarch. The skin was incised with a 15 blade, approximately 1cm. The skin only was cut and the deeper tissue was dissected bluntly with a tenotomy scissor, avoiding passing nerve and venous structures. The fascia was penetrated and opened bluntly. A two-prong skin hook was placed under this proximal fascial edge. A series of hamate finders were used to identify and dilate the carpal tunnel. Synovial elevator was used to free synovial attachments to the underside of the transverse carpal ligament. My thumb was kept in the palm to [place] the distal extent of the carpal tunnel and correctly position the hand. The [employer] endoscope was inserted without difficulty and without resistance. Excellent visualization showed horizontally running fibers of the transverse carpal ligament (TCL). The distal extent of the TCL was visualized and the end of the scope palpated with the thumb. The blade was elevated and withdrawn from distal to proximal. The TCL was split into two flaps. The endoscope was reinserted to confirm complete release and any remnant ligament was incised. The scope was withdrawn and the proximal aspect of the carpal tunnel was grossly inspected and appeared release with the median nerve visible. The antebrachial fascia at the level of the wrist was then freed from the overlying skin and then the underlying median nerve with blunt dissection. This was transected longitudinally for about 3cm proximal to the wrist incision. The wound was then irrigated with easy flow of irrigant distally and proximally. The incision was closed with a single 4-0 Nylon suture. The wound was dressed with Xeroform, Gauze, Kerlix and Daniel. The tourniquet was deflated with the initial dressing and held with some pressure. Blood flow returned easily to all digits with capillary refill less than 2 seconds. The patient tolerated the procedure well and was returned to the Same Day Surgery area in a stable condition suffering no known complication.
== END 2022-06-11 12:35 | disposition home or self-care (01) ==
PROVIDERS: PCP Nurse Practitioner Family; Visit Provider Student in an Organized Health Care Education/Training Program
PROC: 01N54ZZ Release Median Nerve, Percutaneous Endoscopic Approach (ICD-10-PCS; CPT 29848; principal; 2022-06-11 13:15)
DX: G56.02 Carpal tunnel syndrome, left upper limb (principal)
CPT/HCPCS: 29848; J0690; J1100; J1885; J2405

== ENCOUNTER → 2022-06-20 08:37 | Outpatient (BNVA) | payer MEDICARE, SELFPAY | PROVIDERS: PCP Nurse Practitioner Family; Referring Provider Nurse Practitioner Family; Visit Provider Student in an Organized Health Care Education/Training Program | DX: Z47.89 Encounter for other orthopedic aftercare (principal); G56.02 Carpal tunnel syndrome, left upper limb ==

== ENCOUNTER → 2022-08-18 08:20 | Outpatient (BNVA) | payer MEDICARE, SELFPAY | PROVIDERS: PCP Nurse Practitioner Family; Referring Provider Nurse Practitioner Family; Visit Provider Student in an Organized Health Care Education/Training Program | DX: M17.12 Unilateral primary osteoarthritis, left knee (principal) | CPT/HCPCS: 20610; J1040 ==

== ENCOUNTER 2022-12-11 02:16 | Outpatient (CLI) | payer MEDICARE, SELFPAY ==
[2022-12-11 15:01] LABS: HCT 45.6 % (40.0-50.0); HGB 15.9 g/dL (13.5-17.5); MCH 30.8 pg (27.0-33.0); MCHC 34.9 % (32.0-36.0); MCV 88 fL (80-95); MPV 9.9 fL (8.0-11.0); Platelet Count 231 10^3/uL (130-400); RBC 5.17 10^6/uL (4.36-5.78); RDW 12.2 % (11.8-14.1); RDW-SD 39.1 fL; WBC 7.77 10^3/uL (4.4-10.8)
[2022-12-11 16:03] LABS: Anion Gap 4.1 mmol/L (3-11); BUN 16 mg/dL (7-18); CO2 28.9 mmol/L (21.0-32.0); CREATININE 0.9 mg/dL (0.70-1.30); Calcium 9.8 mg/dL (8.5-10.1); Chloride 105 mmol/L (98-107); Estimated GFR 93.61 (mL/min/1.73m2); Glucose 98 mg/dL (74-106); Potassium 4.2 mmol/L (3.5-5.1); Sodium 138 mmol/L (136-145)
== END 2022-12-11 02:17 | disposition home or self-care (01) ==
LOC: LBO 02:16
PROVIDERS: PCP Nurse Practitioner Family; Visit Provider Student in an Organized Health Care Education/Training Program
DX: M25.562 Pain in left knee (principal); M17.12 Unilateral primary osteoarthritis, left knee; Z01.818 Encounter for other preprocedural examination; Z01.812 Encounter for preprocedural laboratory examination
CPT/HCPCS: 36415; 80048; 85027

== ENCOUNTER 2022-12-11 14:33 | Outpatient (CLI) | payer MEDICARE, SELFPAY ==
--- NOTE | 2022-12-11 13:45 | DI.RAD_ITS ---
Exam(s) XR KNEE LT 1V XR STANDING ALIGNMENT EXAM: XR STANDING ALIGNMENT CLINICAL HISTORY: PRE OP L TKA. TECHNIQUE: 2D digital imaging was performed. Standing AP views were performed from the pelvis throu gh the ankles. Lateral left knee COMPARISON: CR XR KNEE LT 1V from 12/11/2022 FINDINGS: BONES: No acute fracture is present. No bony destructive lesion is seen. Leg length discrepancy: JOINTS: Knees: Right: Total knee prosthesis. No surrounding bony lucencies. Left: Staple in medial tibial plateau. Advanced degenerative changes both femoral tibial joints and patellofemoral joint. The ankle joints show bilateral no joint space narrowing, left greater than right.. The hip joints show mild bilateral spurring. SOFT TISSUE: Vascular calcifications. IMPRESSION: Severe degenerative changes left knee.. No significant leg length discrepancy. DATA REPOSITORY: RADIATION DOSE DELIVERED:
== END 2022-12-11 14:34 | disposition home or self-care (01) ==
LOC: DIORS 14:33
PROVIDERS: PCP Nurse Practitioner Family; Referring Provider Nurse Practitioner Family; Visit Provider Physician Assistant
DX: M17.12 Unilateral primary osteoarthritis, left knee (principal); Z01.818 Encounter for other preprocedural examination
CPT/HCPCS: 73560; 77073

== ENCOUNTER 2022-12-17 05:53 | Day surgery (SDC) | payer MEDICARE, SELFPAY ==
[2022-12-17] VITALS (10 sets, daily range): BP systolic 108–141; BP diastolic 66–97; PULSE 49–61; RESP 9–21; TEMP 36.2–36.7; O2SAT 96–100; BMI 29.8
[2022-12-17] MEDS: Lactated Ringers 1,000 ML 80 ML IV (06:28)
[2022-12-17] MEDS: Celecoxib 200 MG CAP 400 MG PO (06:32)
[2022-12-17] MEDS: Gabapentin 300 MG CAP PO (06:32)
[2022-12-17] MEDS: Acetaminophen 500 MG TAB 1000 MG PO (06:32)
--- NOTE | 2022-12-17 07:05 | W.ANESPRE ---
General Info Date of Service Date Performed: 12/17/22 Height: 5 ft 10 in Weight: 94.3 kg Body Mass Index (BMI): 29.8 Surgical Procedure: Operation Date: 12/17/22 07:40 Proposed Procedure Side Surgeon p Knee Total Arthroplasty, Cementless PS Left Julio Lopez MD Meds Allergies and Home Medications Allergies Allergy/AdvReac Type Severity Reaction Status Date / Time codeine Allergy Mild SKIN RASH Verified 12/17/22 05:59 hydrochlorothiazide AdvReac Intermediate Profuse Verified 12/17/22 05:59 diaphoresis Home Medication Medication Instructions Recorded garlic 500 mg capsule 500 mg PO DAILY #30 caps 09/18/20 atenolol 25 mg tablet 25 mg PO DAILY #90 tabs 12/16/21 losartan 100 mg tablet 100 mg PO DAILY #90 tabs 02/18/22 sildenafil 100 mg tablet (Viagra) 100 mg PO DAILY PRN sexual 02/18/22 activity #6 tabs disulfiram 250 mg tablet 250 mg PO HS 06/10/22 amlodipine 10 mg tablet 10 mg PO DAILY #90 tabs 07/10/22 omeprazole 20 mg capsule,delayed 20 mg PO DAILY #90 caps 08/20/22 release acetaminophen 500 mg tablet 1,000 mg PO TID #90 tabs 12/17/22 aspirin 81 mg tablet,delayed 81 mg PO BID #60 tabs 12/17/22 release celecoxib 200 mg capsule 200 mg PO BID #60 caps 12/17/22 dexamethasone 4 mg tablet 4 mg PO DAILY #2 tabs 12/17/22 gabapentin 300 mg capsule 300 mg PO QHS #14 caps 12/17/22 oxycodone 5 mg tablet 5 mg PO Q4H PRN pain #20 tabs 12/17/22 pantoprazole 40 mg tablet,delayed 40 mg PO DAILY #30 tabs 12/17/22 release Current Visit Medications: Current Medications Generic Name Dose Route Start Last Admin Trade Name Freq PRN Reason Stop Dose Admin Acetaminophen 1,000 mg 12/17/22 06:00 12/17/22 06:32 Acetaminophen 500 Mg Tab PO 12/17/22 16:00 1,000 mg PREOP EMILY Administration Celecoxib 400 mg 12/17/22 06:00 12/17/22 06:32 Celecoxib 200 Mg Cap PO 12/17/22 16:00 400 mg PREOP EMILY Administration Gabapentin 300 mg 12/17/22 06:00 12/17/22 06:32 Gabapentin 300 Mg Cap PO 12/17/22 16:00 300 mg PREOP EMILY Administration Tranexamic Acid 1,000 mg/ 60 mls @ 360 mls/hr 12/17/22 06:00 Sodium Chloride IVPB 12/17/22 16:00 PREOP EMILY Ringer's Solution 1,000 mls @ 80 mls/hr 12/17/22 06:00 12/17/22 06:28 IV 01/15/23 23:59 80 mls/hr INFUSION EMILY Administration Cefazolin Sodium/Dextrose 2 gm in 50 mls @ 100 mls/hr 12/17/22 06:00 Ancef Duplex IVPB 01/15/23 23:59 PREOP EMILY IV Miscellaneous Supplies 1 each 12/17/22 06:00 Iv Access IV 01/15/23 23:59 DIRECTED EMILY Sodium Chloride 0 ml 12/17/22 06:00 Normal Saline Flush 10 Ml Syr IV 01/15/23 23:59 PRN PRN Sodium Chloride 0 ml 12/17/22 06:00 Normal Saline 10 Ml Vial IJ 01/15/23 23:59 DIRECTED PRN Sterile Water 0 ml 12/17/22 06:00 Water,Injection,Sterile 10 Ml Vial IJ 01/15/23 23:59 DIRECTED PRN PFSH Active Problems Active Problems: Problem Status Onset Code GERD (gastroesophageal reflux disease) K21.9 Basal cell carcinoma C44.91 Ulnar neuropathy of left upper extremity G56.22 Left carpal tunnel syndrome G56.02 Left knee DJD M17.12 Tubular adenoma ~07/2020 D36.9 Peripheral neuropathy G62.9 Hyperlipidemia E78.5 Essential hypertension 07/12/13 I10 Depressive disorder F32.9 Cervical spine disease 12/26/14 M48.9 Alcohol abuse F10.10 Surgical History Surgical History Appendectomy Arthroplasty of knee right 1998 Colonoscopy - MAC (05/30/13) 2007; TUBULAR ADENOMA 05/30/13 H/O hand surgery 2020-trigger finger Repair, ACL LEFT Replacement of total knee joint (05/16/15) RIGHT KNEE/DR. JOSUE Tobacco Smoking/Tobacco Use Status: Current every day Tobacco Type: smokeless tobacco Smokeless tobacco user: snuff Passive smoking exposure: Yes Second hand exposure: Yes Alcohol Alcohol Intake: former Substance Use Substance use: Never Substance use type: does not use Vital Signs and Lab Results Vital Signs Most Recent Vital Signs in EMR: Most Recent Vital Signs Temp Pulse Resp BP Pulse Ox 36.4 C L 60 16 137/78 99 12/17/22 06:07 12/17/22 06:07 12/17/22 06:07 12/17/22 06:07 12/17/22 06:07 Lab Results Blood Type / Crossmatch: No Data to Display Complete Blood Count: White Blood Count 7.77 10^3/uL (4.4-10.8) 12/11/22 14:57 Red Blood Count 5.17 10^6/uL (4.36-5.78) 12/11/22 14:57 Hemoglobin 15.9 g/dL (13.5-17.5) 12/11/22 14:57 Hematocrit 45.6 % (40.0-50.0) 12/11/22 14:57 Platelet Count 231 10^3/uL (130-400) 12/11/22 14:57 Complete Metabolic Panel: Sodium 138 mmol/L (136-145) 12/11/22 14:57 Potassium 4.2 mmol/L (3.5-5.1) 12/11/22 14:57 Chloride 105 mmol/L (98-107) 12/11/22 14:57 Carbon Dioxide 28.9 mmol/L (21.0-32.0) 12/11/22 14:57 BUN 16 mg/dL (7-18) 12/11/22 14:57 Creatinine 0.9 mg/dL (0.70-1.30) 12/11/22 14:57 Est GFR (CKD-EPI 2020) 93.61 (mL/min/1.73m2) 12/11/22 14:57 Calcium 9.8 mg/dL (8.5-10.1) 12/11/22 14:57 Glucose 98 mg/dL (74-106) 12/11/22 14:57 Liver Function Panel: No Data to Display Coagulation Panel: No Data to Display Cardiac Panel: No Data to Display Arterial Blood Gas: No Data to Display Venous Blood Gas: No Data to Display Pancreas Panel: No Data to Display Thyroid Panel: No Data to Display Infectious Disease: No Data to Display Blood Cultures: No Data to Display Toxicology Panel: No Data to Display Imaging and Studies Imaging and Studies Study information below may be from another EMR and interpreted by another provider. Please see original notes in EMR for more complete details. MRI Summary: 10/2014: narrowing at c6-7, c6-7 Anesthesia Assessment and Plan Anesthesia History Personal History: No History of Anesthesia Complications Family History: No Family History of Anesthesia Complications Exercise Tolerance Exercise Tolerance: Metabolic Equivalents>4 Pertinent Negatives Pertinent Negatives: No Symptoms of GERD, No Major Cardiovascular Symptoms or Complaints, No Major Pulmonary Symptoms or Complaints and No History of CVA/TIA Cardiac & Pulmonary Exam Cardiac Exam: Normal S1/S2 Heart Sounds Pulmonary Exam: Clear Bilateral Breath Sounds Implantable Cardiac Device Does patient have a Pacemaker or an ICD?: No Airway Exam Known Difficult Airway: No Mallampati Class: 1 Mouth Opening: Normal (> 3cm) Thyromental Distance: Greater than 3 cm Neck Range of Motion: Limited ROM Neck Circumference: Normal Teeth Condition: Normal Dentition ASA Classification ASA Score: ASA 2 Emergency Case?: No NPO Status NPO Status: NPO Clears >2 hours, Solids >8 hours Anesthesia Plan Resuscitation Status: Full Code Anesthesia Technique: Spinal Anesthesia Airway Planned: Natural Airway Pain Management: Surgeon and patient request nerve block Monitors Used: Standard Monitors Preoperative Comments:: Previous anesthetic: Sig PMHx: peripheral neuropathy, HTN, depressive, former EtOH abuse, s/p cervical spine surg r/t narrowing tip of thumb numb on left and sometimes left hand will go numb with neck extension, smokeless tobacco. Previous Anes: without issues, Previous airway: none on file.
--- NOTE | 2022-12-17 07:23 | W.PM.DSUDISC ---
Date of service: 12/17/22 Time of Service: 07:23 Discharge Plan Disposition Patient Disposition: Home Condition: Good Discharge Details Reason For Visit: L TKR Attending Provider: Julio Lopez Primary Care Provider: Trevor Steel Home Meds and New Rx's Prescriptions: New acetaminophen 500 mg tablet 1,000 mg PO TID Qty: 90 3RF aspirin 81 mg tablet,delayed release (DR/EC) 81 mg PO BID Qty: 60 0RF celecoxib 200 mg capsule 200 mg PO BID Qty: 60 0RF pantoprazole 40 mg tablet,delayed release (DR/EC) 40 mg PO DAILY Qty: 30 0RF dexamethasone 4 mg tablet 4 mg PO DAILY Qty: 2 0RF gabapentin 300 mg capsule 300 mg PO QHS Qty: 14 0RF oxycodone 5 mg tablet 5 mg PO Q4H MDD 6 tabs PRN (Reason: pain) Qty: 20 0RF Continued atenolol 25 mg tablet 25 mg PO DAILY Qty: 90 3RF losartan 100 mg tablet 100 mg PO DAILY Qty: 90 3RF sildenafil [Viagra] 100 mg tablet 100 mg PO DAILY PRN (Reason: sexual activity) Qty: 6 11RF omeprazole 20 mg capsule,delayed release(DR/EC) 20 mg PO DAILY Qty: 90 3RF amlodipine 10 mg tablet 10 mg PO DAILY Qty: 90 3RF disulfiram 250 mg tablet 250 mg PO HS garlic 500 mg Capsule 500 mg PO DAILY Qty: 30 0RF Discontinued acetaminophen 500 mg tablet 500 mg PO Q6H PRN (Reason: pain) Qty: 60 2RF ibuprofen 600 mg tablet 600 mg PO TID PRN (Reason: pain) Qty: 60 0RF Discharge Instructions Additional Instructions: Total Knee Discharge Instructions Activity: The most important activity is to walk and to work on gentle motion (both flexion and extension). You should try to take short walks a few times a day. It is important that when resting you work on keeping the knee straight. Avoid putting a pillow behind the knee as this will encourage flexion. Work on range of motion exercises as provided by Physical Therapy. - Start outpatient physical therapy within 2 weeks. - You should wear the SINDHU hose on both legs for 2 weeks. You may remove these at night. You may also use any compression sock in place of the SINDHU hose. - Utilize [employer] to review exercises, see videos on exercises and obtain basic information pertaining to your surgery and your recovery. Dressing: Remove the Daniel wrap by 2 days after your surgery and put on the SINDHU stocking given to you from the hospital. Keep the surgical dressing (underneath the DANIEL wrap) in place for at least one week. After the first week it may be removed and replaced with light gauze and tape or nothing. The wound and dressing may get wet after 3 days but avoid soaking the dressing or otherwise it will need to be changed. Many people prefer covering the dressing with cling wrap (saran wrap) to minimize it from getting soaked. If it gets wet, just pat dry. If it starts to peel off then it will need to be changed. Medications: - You should take Tylenol and anti-inflammatory Celebrex as your primary pain control medications. If the Celebrex is too expensive or not covered, please call the office for another alternative (Advil/Ibuprofen or Naproxen/Aleve) - You have been prescribed a stronger pain medication Oxycodone for breakthrough pain, take as needed as prescribed. - You have also been prescribed a stomach acid reduction agent Pantoprozole to help reduce stomach acid and reflux. - You have been prescribed Gabapentin to take at night for restlessness and nerve pain. - You will be taking Aspirin 81mg twice a day for DVT prevention unless instructed otherwise. - You have also been prescribed Decadron to take to control post-operative nausea and pain. You will start this tomorrow. - If you have constipation you should take Colace or Miralax (both [id number]). It takes most people 3-4 days to have a bowel movement. Follow-up: 2 weeks If you have any acute concerns or questions, please do not hesitate to contact the office at [phone]. You may contact Dr. Lopez with any questions after hours through the hospital at [phone] or on his cell phone at [phone]. Referrals: Julio Lopez MD [ [facility] STAFF PHYSICIAN] - Equipment/Supplies: Walker Activity:: Activity as Tolerated Shower/Bathe:: 72 hours Diet:: As Tolerated Discharge Orders Discharge Orders: Discharge Order (Routine); Ordered 12/17/22 Ordered By: Julio Lopez DS: Diagnosis Discharge Diagnosis (1) Left knee DJD: Status: Chronic
[2022-12-17] MEDS: ceFAZolin 2 GM/50 ML BAG IVPB (07:55)
--- NOTE | 2022-12-17 08:27 | W.ANESNERVE ---
Nerve Block Single Injection Procedure Date and Time Date Performed: 12/17/22 Procedure Start: 07:19 Location Where Procedure Performed Procedure Location: Day Surgery Unit Reason Performed: Postoperative Analgesia Requesting Provider: Julio Lopez Timeout Performed Timeout Performed: Yes Monitoring Used ECG, Blood Pressure and SpO2 Sterility Sterility: Hand Hygiene, Surgical Cap, Surgical Mask, Sterile Gloves and Chlorhexidine Sedation Given During Procedure Sedation Given (Indicate Dose Given): No Sedation given Patient Mental Status Patient Mental Status: Awake Nerve Block 1st Nerve Block: Laterality: Left Block Type: Adductor Canal Ultrasound Image Saved?: Yes Needle / Catheter Used: 100mm SonoPlex II Local Anesthetic Bolus (Indicate Dose Given): Lidocaine used for local infiltration of skin, Injected in 3-5ml increments after negative blood aspiration and Bupivacaine 0.25% Dose:: 20 ml Additives (Indicate Dose Given): None Ultrasound: Sterile probe cover and gel used Nerve Stimulator: Not Used Paresthesia: None Procedure Tolerated: No Complications and Patient tolerated well Procedure Outcome: Successful Performed By: Chetan Erickson
--- NOTE | 2022-12-17 09:48 | ROE_ITS ---
Date of service: 12/17/22 Time of Service: 09:48 Operative Note Operative Note PRE-OP DIAGNOSIS: Left Knee Osteoarthritis POST-OP DIAGNOSIS: same PROCEDURE: Left Total Knee Replacement SURGEON: Julio Lopez [employer]TRANS EQUIPMENT OPERATOR: Lebron Farmer ANESTHESIA TYPE: Spinal Refer to Anesthesia Record ESTIMATED BLOOD LOSS: 100 PATHOLOGY: none sent TOURNIQUET TIME: 0 COMPLICATIONS: None Patient was transported to: PACU Patient's condition: stable Implants: 1. Depuy Attune Cementless Posterior Stabilized Femoral Component, Size 7 2. Depuy Attune Cementless Rotating Platform Tibial Component, Size 7 3. Depuy Attune 7x5mm PS/RP Poly 4. Depuy Attune Patellar Component, Size 38 Indications: I have seen Chetan in clinic for symptoms of knee arthritis, confirmed with radiographic findings. He has exhausted nonoperative methods and was having significant limitations in daily function and desired better function and less pain. I discussed the technical details of a knee replacement. I explained the risks of the procedure to include, but not limited to, bleeding, infection, pain, stiffness, fracture, damage to nerves and vessels, damage to muscles and tendons, loosening, need for repeat procedure, blood clot and cardiopulmonary demise. Despite these risks, Chetan elected to proceed. Findings: There was wearing of cartilage, mostly of the medial femur and tibia but generalized chondromalacia throughout the lateral and patellofemoral spaces. Procedure Description: Chetan was greeted in the preoperative holding area where the correct side was identified and marked. The consent was reviewed with the patient and signed. The history and physical was updated. All questions were answered. Preoperative medications were administered: Acetaminophen 1000mg, Celebrex 400mg, and Gabapentin 300mg. An adductor canal block was then administered by the anesthesia team in the PACU. Chetan was taken back to the operating room. A spinal anesthestic was then administered. The patient was placed into the supine position on the operating room table. A nonsterile tourniquet was placed high onto the leg but only used for cementing. Posts were placed for positioning during the proce dure. All bony prominences were well padded. Prophylactic antibiotics in the form of Cefazolin were administered. 1g of Tranxemic Acid was given intravenously within 30 minutes of incision. The left leg was then prepped with Chloraprep and draped in a standard fashion with impervious stockinette. A second prep with Chloraprep was performed prior to application of Iodine impregnated skin protection. A timeout to confirm correct identity, side and site, procedure, allergies, anesthesia, and medical concerns was performed. With the knee in some flexion, a midline incision was made overlying the knee. Full thickness skin flaps were raised once the extensor mechanism was encountered. These were raised medially and laterally. Any bleeding was controlled with electrocautery. Once the extensor mechanism was fully exposed, a medial parapatellar arthrotomy was performed in a flexed position. All bleeding from the arthrotomy and the geniculate arteries was coagulated. A medial subperiosteal peel was performed with electrocautery to the midcoronal plane. The fat pad was removed while keeping the patellar tendon protected. The anterior distal femur synovium was removed for later visualization. The ACL and PCL were resected and the anterior horn of the lateral meniscus was transected. The knee was then flexed with the patella everted. There was significant scarring to the prepatellar fat. Using a step drill, and based on preoperative templating, the femoral canal was entered. This was done with a step drill without any difficulty. The intramedullary distal femoral cut guide was inserted, set to a 5 degree valgus cut and 9mm cut thickness. The distal femoral cut guide was then held in position and pinned. With the soft tissues protected, the distal cut was p erformed. This was passed over a few times to ensure a planar cut. I then turned attention to the tibia. The extramedullary guide was placed onto the leg. The distal aspect was slid medial to adjust for position of center of ankle and stay in line with shaft of the tibia. Approximately 3-5 degrees of posterior slope was kept in the proximal cutting guide. The center of the guide was aligned with the PCL. The stylus was used to assess cut thickness. The medial side, most involved side, was set for a 5mm cut. This was then held in position and pinned into place with 2 additional pins and a cross pin for stability. The medial and lateral collateral ligaments were protected and the cut was performed. With this completed, it was assessed and noted to be of appropriate dimensions. The guide was removed. A spacer block was inserted and the knee was brought into extension. The 5mm spacer block provided full extension, without hyperextension and with stability of both the medial and lateral collateral ligaments was assessed. The pins from the femur and the tibia were then removed. The distal femur was then sized. The anterior stylus was placed onto the lateral ridge of the anterior femur. This indicated a size 7 femur. The external rotation of the guide was adjusted to 0 degrees to match the epicondylar axis, perpendicular to [place]?s line. The 4-in-1 cutting guide was the placed. The posterior medial femur cut was evaluated and appeared of good thickness. The spacer block was inserted underneath the cutting guide and stability was confirmed in 90 degrees of flexion. An josh wing was used to confirm appropriate position of the anterior cut to avoid notching. This cutting guide was ensured to be flush on the cut surface and then pinned into place with headed pins. While protecting the soft tissues, quad tendon, and collateral ligaments, the anterior and posterior cuts were performed with a saw. The central two pins were removed and the posterior and anterior chamfers were cut next. The notch-cutting guide was placed. This was pinned to lateralize the femoral component as much as possible while keeping it flush on the cut surface. This w as then pinned into position. A reciprocating saw was used to make the notch cut. A rasp smoothed the cut surfaces. The medial and lateral menisci were removed. A trial femoral component was then inserted, impacted down to the cut surfaces, and the lug holes were drilled. A provisional trial tibial component was placed and the knee was brought through range of motion. There was noted to be excellent extension and flexion. There was no significant instability. The patella was tracking without thumbs. A size 5mm polyethylene component provided the best range of motion and stability with less than 2mm gapping with medial and lateral stress and full extension without significant hyperextension. The tibial cut surface was fully exposed. The tibia was then sized as a 7. The tibia had been previously marked during trialing to correspond to the center of the tibial component to help with rotation. The trial was aligned to this lebron, approximately rotated to the medial 1/3rd of the tibial tubercle. The trial was pinned into place. The tibia was prepared with a reamer and a keel punch and lug holes. The knee was then brought into extension and the patella was measured as 30mm. Using the patellar clamp and cut guide, this was resected to a flat surface with at least 13mm of thickness remaining. The size 38 patella fit the best. This was oriented and then clamped into position. The lugs were drilled. The trial components were removed. The final components were opened on the back table. The periosteal and capsular tissues, especially posteriorly, around the knee were then systematically injected with a periarticular cocktail consisting of 246mg of Ropivacaine, 0.5mg of Epinephrine, 0.08mg of Clonidine, and 30mg of Ketorolac, diluted to 100cc. On the back table, with the implants opened, the cement was mixed. One batch of high viscosity cement was prepared with vacuum assistance. After the cement was ready a small amount was placed on the cut surface of the patella and the patellar button was clamped into position and held. While the cement was hardening, the cementless knee components were placed. Starting with the tibial component, the tibia was subluxed anteriorly and the lug holes of the component were lined up. The tibia was then impacted with an impactor and mallet until the tibial component was in contact with the tibia. Then, the femoral component was inserted. The lug holes were aligned and the component was impacted into position. The final polyethylene was then inserted. The knee was irrigated with Irrisept chlorhexadine solution. This was allowed to sit in the knee for 3 minutes and then it was irrigated out with saline. After the cement had finally cured, approximately 15min, the clamp was removed from the patella and the knee was taken through range of motion. The patella was tracking with a no-thumbs technique. The capsule was then reapproximated with a No. 1 Vicryl at multiple locations. The capsule was finally closed with a No. 2 Stratafix, barbed suture. The second dosing of 1g TXA was started. Deep tissues were then reapproximated with 0 Vicryl and 2-0 Vicryl. The skin was closed with a running 3-0 Monocryl in a subcuticular fashion. This was reinforced with skin glue. A Mepilex silver dressing was applied along with a [id number] AQUILES wrap. A CryoCuff was applied. Chetan was transferred to the hospital bed without difficulty an suffering no apparent complication. Chetan has a good prognosis. Physical therapy will start today and without restrictions, weight-bearing as tolerated. Aspirin 81mg BID will be used for DVT prophylaxis.
[2022-12-17] MEDS: fentaNYL 100 MCG/2 ML VIAL IVP (10:04)
[2022-12-17] MEDS: oxyCODONE 5 MG TAB PO (12:10)
--- NOTE | 2022-12-17 12:15 | W.ANESPOSTOP ---
Postoperative Evaluation Date, Time and Location Date Performed: 12/17/22 Time Performed: 12:10 Patient Location: Day Surgery Unit Vital Signs Most Recent Imported Vital Signs: Most Recent Vital Signs Temp Pulse Resp BP Pulse Ox 36.3 C L 58 L 16 118/76 96 12/17/22 11:07 12/17/22 11:07 12/17/22 11:07 12/17/22 11:07 12/17/22 11:07 Pain Score Most Recent Pain Score: Most Recent Pain Score Pain Level 2 12/17/22 11:07 Assessment Mental Status: Awake (Alert & Oriented to Patient Baseline) Airway and Respiratory Function: Patent airway with normal (patient baseline) respiratory exam Cardiovascular Function: Hemodynamically Stable Hydration Status: Adequately Hydrated Nausea & Vomiting: No Nausea or Vomiting Pain: Pain is Moderate or Severe (Not currently 5/10) Postoperative Pain Management: Pain being addressed with medication Peripheral Nerve Block: Regional nerve block not resolved at time of post operative discharge
--- NOTE | 2022-12-17 13:40 | PT.INIE ---
Date of service: 12/15/22 Time of Service: 11:08 PT Notes Visit Reasons: L TKR Physical Therapy Day Surgery Initial Evaluation Date: 12/17/2022 Referring Doctor: PRIYANKA Gaona PT Orders: PT CONSULT: S/p Ortho surgery. Eval/treat Precautions: WBAT on left LE with AD. Patient Profile/Admitting Diagnosis: Chetan is a 67-year-old male with degenerative joint disease of the left knee and status post left total knee arthroplasty on postoperative day 0. PMHX: Surgical History?(Updated 06/20/22 @ 09:04 by PRIYANKA Gaona) Appendectomy Arthroplasty of knee right 1998 Colonoscopy - MAC (05/30/13) 2007; TUBULAR ADENOMA 05/30/13 H/O hand surgery 2020-trigger finger Repair, ACL LEFT Replacement of total knee joint (05/16/15) RIGHT KNEE/DR. JOSUE Social History/Home Situation: Lives with in a private home with a flight of steps to enter with a rail on one side and a wall on the other side. Bedroom is on the basement but with hand support available on both sides. Admitted all aspects of ADLs prior to surgery although difficulty of mobility ADL performance was worsening due to left knee DJD Equipment Owned/DME: [facility] Subjective: Denies headache, chest pain, and lightheadedness throughout session. Reports 1?2/10 pain in left knee with movement. Objective: General Observation: Supine in bed. AQUILES wraps to left LE. Cryocuff to left knee. TEDs to R leg. Mental Status: Alert and oriented x4 Pain: 1?2/10 in the left knee with AD. ROM: Right Lower Extremity: Hip flexion WFL. Hip abduction WFL. Knee flexion WFL. Ankle dorsiflexion WFL. Ankle plantarflexion WFL. Left Lower Extremity: Hip flexion WFL. Hip abduction WFL. Knee flexion 0 to 100 degrees. Ankle dorsiflexion WFL. Ankle plantarflexion WFL. Strength: Right Lower Extremity: Hip flexors 5/5. Hip abductors 5/5. Knee flexors 5/5. Knee extensors 5/5. Ankle dorsiflexors 5/5. Ankle plantarflexors 5/5. Left Lower Extremity:Hip flexors 4/5. Hip abductors 4/5. Knee flexors 3-/5. Knee extensors 4-/5. Ankle dorsiflexors 5/5. Ankle plantarflexors 5/5. Sensation: Intact as to pain and light touch in bilateral lower extremities Bed Mobility/Transfers: Supine to sit standby assist Sit to stand standby assist Stand to sit standby assist Bed to chair standby assist Gait: 150 feet on level surface ambulation using front wheeled walker with step through gait pattern requiring only standby assist. No LOB. No SOB. Good L quad activation. Balance: Static Sitting: Normal Dynamic Sitting: Normal Static Standing: Fair Dynamic Standing: Fair Special Tests: Mobility Limitations Standardized Measure [facility] AM-PAC 6 clicks Basic Mobility Inpatient Short Form: Raw Score: 24 CMS Score: 0% deficit Informed Consent/Education: Patient instructed in purpose of PT consult. Packet containing TKA exercise protocol has been given to patient. Education and training on initial set of exercises that can be done at home have been completed with patient. THERA EX: Supine quad sets x5 Supine heel slides x5 Supine ankle pumps x10 Supine small range SLR x5 Seated marches x5 Assessment: Chetan requires the use of a front wheeled walker for all mobility ADL performance in order to maximize independence and reduce fall risk. Patient presents with clinical signs and symptoms consistent with current/admitting diagnoses that have resulted to mobility limitations, gait instability, generalized weakness, and impairment of motor control as demonstrated by the following impairment level findings: 1. Decreased strength to left knee major muscle groups 2. Impaired standing balance 3. Limitation of joint range of motion in left knee flexion Impairments are contributing to the following functional limitations: 1. Inability to safely ambulate without assistive device 2. Increase completion time for mobility ADL performance 3. Increased fall risk Patient is assessed as a 98680 complexity based on the following: History: 67-year-old female with impairment level findings, functional limitations, and past medical history as indicated above Examination: Demonstrable impairment in strength, balance, and mobility level with underlying impairments and functional limitations as documented above Presentation: Evolving Decision Makin moderate complexity Goals: N/A. PT evaluation and 1-2 treatment sessions only for functional mobility training using recommended AD and for HEP instruction. Plan of Care/Treatment Plan: N/A. PT evaluation and 1-2 treatment session only for functional mobility training using recommended AD and for HEP instruction. DISCHARGE RECOMMENDATIONS: Home when medically cleared by orthopedic surgeon. Recommend outpatient PT services in order to optimize functional mobility outcomes and facilitate return to independent community ambulation without an assistive device. TREATMENT CODE/TIME: 31327 x 20 minutes, 9753 0 x 12 minutes beginning at 11:08 AM. Thank you for the opportunity to participate in the care of this patient. Lisa Muhammad PT, DPT, CLT [facility] [place], [place]
== END 2022-12-17 12:46 | disposition home or self-care (01) ==
PROVIDERS: PCP Nurse Practitioner Family; Visit Provider Student in an Organized Health Care Education/Training Program
PROC: (CPT 27447; principal; 2022-12-17 07:30)
DX: M17.12 Unilateral primary osteoarthritis, left knee (principal)
CPT/HCPCS: 27447; C1776; 97162; 97530; J0690; J1100; J2405; J3010

== ENCOUNTER 2023-01-01 10:57 | Outpatient (CLI) | payer MEDICARE, SELFPAY ==
--- NOTE | 2023-01-01 08:15 | DI.RAD_ITS ---
Exam(s) XR KNEE LT 1V XR STANDING ALIGNMENT EXAM: XR STANDING ALIGNMENT CLINICAL HISTORY: 1ST POST OP L TKA. TECHNIQUE: 2D digital imaging was performed. Standing AP views were performed from the pelvis throu gh the ankles. Lateral view left knee COMPARISON: CR XR STANDING ALIGNMENT from 12/11/2022 CR XR KNEE LT 1V from 01/01/2023 FINDINGS: BONES: No acute fracture is present. No bony destructive lesion is seen. Leg length discrepancy: JOINTS: Knees: Bilateral total knee prostheses. Left knee prosthesis has been placed since prior exa m. The ankle joints show degenerative changes, left greater than right. The hip joints show mild degenerative changes.. SOFT TISSUE: Soft tissue swelling around left knee. Mild soft tissue edema of the left lower leg. V ascular calcifications. IMPRESSION: Bilateral knee prostheses. No significant leg length discrepancy. DATA REPOSITORY: RADIATION DOSE DELIVERED:
== END 2023-01-01 10:58 | disposition home or self-care (01) ==
LOC: DIORS 10:57
PROVIDERS: PCP Nurse Practitioner Family; Referring Provider Nurse Practitioner Family; Visit Provider Physician Assistant
DX: Z96.652 Presence of left artificial knee joint (principal); Z47.1 Aftercare following joint replacement surgery; M79.89 Other specified soft tissue disorders; R60.0 Localized edema
CPT/HCPCS: 73560; 77073

== ENCOUNTER → 2023-01-29 08:41 | Outpatient (BNVA) | payer MEDICARE, SELFPAY | PROVIDERS: PCP Nurse Practitioner Family; Referring Provider Nurse Practitioner Family | DX: Z47.1 Aftercare following joint replacement surgery (principal); Z96.652 Presence of left artificial knee joint ==

== ENCOUNTER → 2023-03-12 09:13 | Outpatient (BNVA) | payer MEDICARE, SELFPAY | PROVIDERS: PCP Nurse Practitioner Family; Referring Provider Nurse Practitioner Family; Visit Provider Student in an Organized Health Care Education/Training Program | DX: Z47.1 Aftercare following joint replacement surgery (principal); Z96.652 Presence of left artificial knee joint ==

== ENCOUNTER → 2023-05-08 08:21 | Outpatient (BNVA) | payer MEDICARE, SELFPAY | PROVIDERS: PCP Nurse Practitioner Family; Referring Provider Nurse Practitioner Family; Visit Provider Student in an Organized Health Care Education/Training Program | DX: M76.32 Iliotibial band syndrome, left leg (principal) | CPT/HCPCS: 99213 ==

== ENCOUNTER 2023-12-18 09:19 | Outpatient (CLI) | payer MEDICARE, SELFPAY ==
--- NOTE | 2023-12-18 08:15 | DI.RAD_ITS ---
Exam(s) XR KNEE LT 2V AP,LAT EXAM: XR KNEE LT 2V AP,LAT CLINICAL HISTORY: ANNUAL F/U L TKA. TECHNIQUE: 2D digital imaging was performed. Three views. COMPARISON: CR XR KNEE LT 1V from 12/11/2022 CR XR STANDING ALIGNMENT from 01/01/2023 CR XR KNEE LT 1V from 01/01/2023 FINDINGS: BONES: No acute fracture is present. No bony destructive lesion is seen. Enthesophyte upper pole of the patella. JOINTS: The prosthesis is normally aligned. No joint effusion is seen. SOFT TISSUE: Vascular calcifications. IMPRESSION: Stable appearance of left knee prosthesis. DATA REPOSITORY: RADIATION DOSE DELIVERED:
== END 2023-12-18 09:20 | disposition home or self-care (01) ==
LOC: DIORS 09:19
PROVIDERS: PCP Nurse Practitioner Family; Referring Provider Nurse Practitioner Family; Visit Provider Physician Assistant
DX: Z96.652 Presence of left artificial knee joint (principal); Z47.1 Aftercare following joint replacement surgery; M76.32 Iliotibial band syndrome, left leg
CPT/HCPCS: 99213; 73560

== ENCOUNTER → 2024-02-11 08:42 | Outpatient (BNVA) | payer MEDICARE, SELFPAY | PROVIDERS: PCP Nurse Practitioner Family; Referring Provider Nurse Practitioner Family; Visit Provider Student in an Organized Health Care Education/Training Program | DX: M76.32 Iliotibial band syndrome, left leg (principal) | CPT/HCPCS: 99213 ==

== ENCOUNTER 2024-03-02 09:57 | Outpatient (CLI) | payer MEDICARE, SELFPAY ==
[2024-03-02 12:26] LABS: CREATININE 0.8 mg/dL (0.70-1.30); Calculated LDL 141 mg/dL (<100); Cholesterol 203 mg/dL (<200); HDL Cholesterol 49 mg/dL (40-60); Potassium 4.1 mmol/L (3.5-5.1); Triglyceride 66 mg/dL (<150)
[2024-03-02 18:04] LABS: PSA, Screening 0.5 ng/mL (<=4.5)
== END 2024-03-02 09:58 | disposition home or self-care (01) ==
LOC: LBO 09:57
PROVIDERS: PCP Nurse Practitioner Family; Visit Provider Nurse Practitioner Family
DX: Z12.5 Encounter for screening for malignant neoplasm of prostate (principal); E78.5 Hyperlipidemia, unspecified; I10 Essential (primary) hypertension
CPT/HCPCS: 36415; 80061; 84153; 82565; 84132

== ENCOUNTER → 2024-05-19 08:55 | Outpatient (BNVA) | payer MEDICARE, SELFPAY | PROVIDERS: PCP Nurse Practitioner Family; Visit Provider Student in an Organized Health Care Education/Training Program | DX: M76.32 Iliotibial band syndrome, left leg (principal); Z47.1 Aftercare following joint replacement surgery; Z96.652 Presence of left artificial knee joint | CPT/HCPCS: 99213 ==

== ENCOUNTER → 2025-05-31 09:21 | Outpatient (BNVA) | payer MEDICARE, SELFPAY | PROVIDERS: PCP Nurse Practitioner Family; Referring Provider Nurse Practitioner Family; Visit Provider Physical Therapy Assistant ==

== ENCOUNTER 2025-06-15 09:05 | Day surgery (SDC) | payer MEDICARE, SELFPAY ==
[2025-06-15 09:30] VITALS: BP 123/76; PULSE 58; RESP 16; TEMP 36.2; O2SAT 99
--- NOTE | 2025-06-15 09:38 | W.ANESPRE ---
General Info Date of Service Date Performed: 06/15/25 Height: 5 ft 10 in Weight: 90.6 kg Body Mass Index (BMI): 28.6 Surgical Procedure: Operation Date: 06/15/25 10:35 Proposed Procedure Side Surgeon ronan March MD Meds Allergies and Home Medications Allergies Allergy/AdvReac Type Severity Reaction Status Date / Time codeine Allergy Mild SKIN RASH Verified 06/15/25 09:27 hydrochlorothiazide AdvReac Intermediate Profuse Verified 06/15/25 09:27 diaphoresis Home Medication ?Medication ?Instructions ?Recorded garlic 500 mg capsule 500 mg PO DAILY #30 caps 09/18/20 omeprazole 20 mg capsule,delayed 20 mg PO DAILY #90 caps 07/29/24 release atenolol 25 mg tablet 25 mg PO DAILY #90 tabs 11/23/24 losartan 100 mg tablet 100 mg PO DAILY #90 tabs 01/16/25 naltrexone 50 mg tablet 50 mg PO DAILY #90 tabs 03/01/25 celecoxib 200 mg capsule (Celebrex) 200 mg PO BID #60 caps 04/19/25 bisacodyl 5 mg tablet,delayed 5 mg PO ONCE #4 tabs 05/31/25 release (Dulcolax (bisacodyl)) polyethylene glycol 3350 17 17 g PO ONCE #238 grams 05/31/25 gram/dose oral powder amlodipine 10 mg tablet 10 mg PO DAILY #90 tabs 06/12/25 Current Visit Medications: Current Medications Generic Name Dose Route Start Last Admin Trade Name Freq PRN Reason Stop Dose Admin Ringer's Solution 1,000 mls @ 80 mls/hr 06/15/25 06:00 IV 06/15/25 23:59 INFUSION EMILY IV Miscellaneous Supplies 1 each 06/15/25 06:00 Iv Access IV 06/15/25 23:59 DIRECTED EMILY Sodium Biphosphate/Sodium Phosphate 133 - 266 ml 06/15/25 06:00 Na Phosphate Enema-Adult 133 Ml Btl LA 06/15/25 23:59 DIRECTED PRN Sodium Chloride 0 ml 06/15/25 06:00 Normal Saline Flush 10 Ml Syr IV 06/15/25 23:59 PRN PRN Sodium Chloride 0 ml 06/15/25 06:00 Normal Saline 10 Ml Vial IJ 06/15/25 23:59 DIRECTED PRN Sterile Water 0 ml 06/15/25 06:00 Water,Injection,Sterile 10 Ml Vial IJ 06/15/25 23:59 DIRECTED PRN PFSH Active Problems Active Problems: Problem Status Onset Code Iliotibial band syndrome affecting left lower leg Acute M76.32 GERD (gastroesophageal reflux disease) Chronic K21.9 Basal cell carcinoma Acute C44.91 Ulnar neuropathy of left upper extremity Acute G56.22 Left carpal tunnel syndrome Acute G56.02 Tubular adenoma Acute ~07/2020 D36.9 Peripheral neuropathy Acute G62.9 Hyperlipidemia Acute E78.5 Essential hypertension Acute 07/12/13 I10 Cervical spine disease Acute 12/26/14 M48.9 Alcohol abuse Acute F10.10 Medical History Medical History Depressive disorder Surgical History Surgical History 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 JOSUE Repair, ACL LEFT Colonoscopy - MAC (05/30/13) 2007; TUBULAR ADENOMA 05/30/13 Arthroplasty of knee right 1998 Appendectomy Tobacco Smoking/Tobacco Use Status: Current every day Tobacco Type: smokeless tobacco Smokeless tobacco user: snuff Passive smoking exposure: Yes Second hand exposure: No Alcohol Alcohol Intake: former Year quit: 2020 Substance Use Substance use: Never Substance use type: does not use Details: last chew 06/14/25, 0 Vital Signs and Lab Results Vital Signs Most Recent Vital Signs in EMR: Most Recent Vital Signs Temp Pulse Resp BP Pulse Ox 36.2 C L 58 L 16 123/76 99 06/15/25 09:30 06/15/25 09:30 06/15/25 09:30 06/15/25 09:30 06/15/25 09:30 Imaging and Studies Imaging and Studies Study information below may be from another EMR and interpreted by another provider. Please see original notes in EMR for more complete details. MRI Summary: 10/2014: narrowing at c6-7, c6-7 Anesthesia Assessment and Plan Anesthesia History Personal History: No History of Anesthesia Complications Family History: No Family History of Anesthesia Complications Exercise Tolerance Exercise Tolerance: Metabolic Equivalents>4 Pertinent Negatives Pertinent Negatives: No Symptoms of GERD Cardiac & Pulmonary Exam Cardiac Exam: Normal S1/S2 Heart Sounds Pulmonary Exam: Clear Bilateral Breath Sounds Implantable Cardiac Device Does patient have a Pacemaker or an ICD?: No Airway Exam Known Difficult Airway: No Mallampati Class: 1 Mouth Opening: Normal (> 3cm) Thyromental Distance: Greater than 3 cm Neck Range of Motion: Limited ROM Neck Circumference: Normal Teeth Condition: Normal Dentition ASA Classification ASA Score: ASA 2 Emergency Case?: No NPO Status NPO Status: NPO Clears >2 hours, Solids >8 hours Anesthesia Plan Resuscitation Status: Full Code Anesthesia Technique: General Anesthesia Airway Planned: Natural Airway Monitors Used: Standard Monitors
[2025-06-15 09:39] VITALS: BMI 28.6
[2025-06-15] MEDS: Lactated Ringers 1,000 ML 80 ML IV (09:45)
--- NOTE | 2025-06-15 09:47 | W.PM.HP.N ---
Date of service: 06/15/25 Time of Service: 10:19 Assessment and Plan Assessment and plan (1) Encounter for colonoscopy due to history of colonic polyp: Status: Acute Assessment and plan: proceed w colonoscopy as planned. consent form reviewed and risks reviewed. Consent signed. History of Present Illness History of Present Illness Chief Complaint: colonoscopy Narrative: 70yo M with history of colon polyps. He has had polyps removed in the past and is due for colonscopy now. He has never had colon surgery. no current symptoms. No fam hx of colorectal cancer. no IBD, crohns, UC. PFSH All Active Problems Encounter for colonoscopy due to history of colonic polyp (Acute) Iliotibial band syndrome affecting left lower leg (Acute) GERD (gastroesophageal reflux disease) (Chronic) Basal cell carcinoma (Acute) Remote, chest wall Ulnar neuropathy of left upper extremity (Acute) Left carpal tunnel syndrome (Acute) S/P ECTR: 06/11/2022 Tubular adenoma (Acute ~07/2020) 2019-Dr. 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 JOSUE Repair, ACL LEFT Colonoscopy - MAC (05/30/13) 2007; TUBULAR ADENOMA 05/30/13 Arthroplasty of knee right 1998 Appendectomy Family History Mother , 69 Personal history of malignant neoplasm Father Acute ill-defined cerebrovascular disease Grandfather Heart disease Sister No problems noted. Brother No problems noted. Daughter No problems noted. Social History Smoking/Tobacco Use Status: Current every day Tobacco Type: smokeless tobacco Tobacco: How many years used: 35 Smokeless tobacco user: snuff Quit status: not considering quitting Second Hand Exposure: No Smoking risk assessment performed?: Yes Alcohol Intake: former Year quit: 2020 Drug use: Never Substance use type: does not use Counseling given: No Details: last chew 06/14/25, 2199 Adopted: No Caregiver/Support person: No Household members: spouse Housing: house Number of Children: 1 number of grandchildren: 1 Communication Needs: None Education Level: college Details: 2 years Do you need help understanding health information?: Never current occupation: retired Pets and animals: No Sexually active: No Do you think of yourself as: straight/heterosexual Current gender identity: male What is your relationship status?: How often do you talk on the phone with friends or family?: once per week How often do you get together with friends or relatives?: once per week How often do you attend mandaen or baptist services?: decline to answer Do you belong to any clubs or organized social groups?: no Panel score (0-1 are the most socially isolated patients): 1 Duration: 30-45 minutes/day Frequency: 5-6 times per week Leeanna/Yarsanism: Druze Special leeanna needs: No Agree to transfusion: Yes Seatbelt use: always Helmet use: No Drive intox or ride w/intox day haul or farm charter bus driver: No Working smoke detector in home: Yes Carbon monox detector in home: Yes Firearms in home: Yes Firearms unloaded and locked: Yes Do you feel safe at home: Yes Do you feel safe in your relationship?: Yes Victim of physical abuse: No Victim of emotional abuse: No Victim of sexual abuse: No Additional Social history: UTAP Meds Allergies and Home Medications Allergies Allergy/AdvReac Type Severity Reaction Status Date / Time codeine Allergy Mild SKIN RASH Verified 06/15/25 09:27 hydrochlorothiazide AdvReac Intermediate Profuse Verified 06/15/25 09:27 diaphoresis Home Medications ?Medication ?Instructions ?Recorded ?Confirmed ?Type garlic 500 mg capsule 500 mg PO DAILY #30 caps 09/18/20 06/15/25 Rx omeprazole 20 mg capsule,delayed 20 mg PO DAILY #90 caps 07/29/24 06/15/25 Rx release atenolol 25 mg tablet 25 mg PO DAILY #90 tabs 11/23/24 06/15/25 Rx losartan 100 mg tablet 100 mg PO DAILY #90 tabs 01/16/25 06/15/25 Rx naltrexone 50 mg tablet 50 mg PO DAILY #90 tabs 03/01/25 06/15/25 Rx celecoxib 200 mg capsule (Celebrex) 200 mg PO BID #60 caps 04/19/25 06/15/25 Rx bisacodyl 5 mg tablet,delayed 5 mg PO ONCE #4 tabs 05/31/25 06/15/25 Rx release (Dulcolax (bisacodyl)) polyethylene glycol 3350 17 17 g PO ONCE #238 grams 05/31/25 06/15/25 Rx gram/dose oral powder amlodipine 10 mg tablet 10 mg PO DAILY #90 tabs 06/12/25 06/15/25 Rx Exam Narrative Exam Narrative: awake, NAD eomi, MMM midline trachea, neck is symmetric PULM: normal resp effort, equal chest rise with respiration, no wheezing audible CARDIAC: normal PMI, no jvd, regular rate, normal perfusion abdomen is nondistended. extremities are without deformity, normal movement of all four extremities speech is clear and coherent mood and affect are congruent, no focal neurological deficits skin without rash Results Last Vital Signs Temp 97.2 F L 06/15/25 09:30 Pulse 58 L 06/15/25 09:30 Resp 16 06/15/25 09:30 BP 123/76 06/15/25 09:30 Pulse Ox 99 06/15/25 09:30 Time Spent Time spent with Patient: <40 minutes Time was spent: preparing to see the patient(eg.review tests) and counseling the patient
--- NOTE | 2025-06-15 10:36 | BOWEL_PTH ---
PATIENT: Chetan Carcamo LOC: [facility] U#:[id number] AGE/SX: 70/M ROOM: RE06/15/[address]: Malu March MD : 1955 BED: DIS: 06/15/2025 SPEC #: [id number] RECD: 06/15/25 13:03 STATUS: DAYSI REAlonso #: [id number] RIC: 06/15/25 10:[address]: Malu March DEPT: Surgical Specimen RECD BY: Ginette Umaña ENTERED: 06/15/25 13:04 SP TYPE: Bowel OTHR DR: Trevor Steel, ROLLER CLEANER Tissues: 1 - BIOPSY BOWEL Procedures: GROSS AND MICRO LEVEL 4 Comments: [id number]
--- NOTE | 2025-06-15 10:49 | W.PM.DSUDISC ---
Date of service: 06/15/25 Discharge Plan Disposition Patient Disposition: Home Condition: Stable Discharge Details Attending Provider: Malu March Primary Care Provider: Trevor Steel Home Meds and New Rx's Prescriptions: Continued naltrexone 50 mg tablet 50 mg PO DAILY Qty: 90 3RF omeprazole 20 mg capsule,delayed release(DR/EC) 20 mg PO DAILY Qty: 90 3RF atenolol 25 mg tablet 25 mg PO DAILY Qty: 90 3RF losartan 100 mg tablet 100 mg PO DAILY Qty: 90 3RF celecoxib [Celebrex] 200 mg capsule 200 mg PO BID Qty: 60 0RF Rx Instructions: take 1 tablet by mouth twice daily amlodipine 10 mg tablet 10 mg PO DAILY Qty: 90 3RF garlic 500 mg Capsule 500 mg PO DAILY Qty: 30 0RF Discontinued bisacodyl [Dulcolax (bisacodyl)] 5 mg tablet,delayed release (DR/EC) 5 mg PO ONCE Qty: 4 0RF Rx Instructions: Take per colonoscopy instructions provided by ordering providers office polyethylene glycol 3350 17 gram/dose powder 17 g PO ONCE Qty: 238 0RF Rx Instructions: Take per colonoscopy instructions provided by ordering providers office Discharge Instructions Additional Instructions: One polyp seen and removed from left side of colon today. I predict it is a tubular adenoma polyp, and that you will be due again in 5 years. Its possible it is a different kind of polyp and that you may need another scope in 3 years. I will communicate with you in writing when I get the polyp results back to let you know the news. Stand Alone Forms: Anesthesia Discharge Inst., Colonoscopy Post Instructions, Tuan Brantley (DSU) Activity:: Activity as Tolerated Diet:: As Tolerated Discharge Orders Discharge Orders: Discharge Order (Routine); Ordered 06/15/25 Ordered By: Malu March DS: Diagnosis Discharge Diagnosis (1) Encounter for colonoscopy due to history of colonic polyp: Status: Acute (2) Polyp of descending colon: Status: Acute
[2025-06-15 10:50] VITALS: BP 93/56; PULSE 59; RESP 14; TEMP 36.5; O2SAT 96
--- NOTE | 2025-06-15 10:53 | W.COLOREPORT ---
Date of service: 06/15/25 Time of Service: 10:53 Colonoscopy Report Date of procedure: 06/15/25 Pre-op diagnosis general: history of colon polyps Post-op diagnosis procedure note: same (descending colon polyp) Procedure: Colonoscopy Surgeon: Malu March Anesthesia Type: General:No Airway Estimated blood loss (mL): 1 Pathology: other (descending colon polyp) Complications: None Indications: screening for colorectal cancer Prep: Miralax/Dulcolax (GOOD) Procedure Description: Informed consent was obtained and the patient was taken to the procedure area. The patient was placed in left lateral decubitus position on the procedure table. Timeout was performed. Anesthesia was induced. A lubricated colonoscope was inserted through the anus and passed to the cecum. The cecum was identified by the ileocecal valve and the appendiceal orifice. The scope was then slowly withdrawn and the colonic and rectal mucosa examined. TI intubated and examined. It appears normal. Descending colon with 6mm pedunculated polyp seen and excised with hot snare. retrieved with polyp trap. The scope was retroflexed in the anorectal junction examined. Uncomplicated internal hemorrhoids present. Assessment and plan: One polyp seen and excised, <10mm in size. Next colonoscopy will be due in 5 years if tubular adenoma or hyperplastic polyp, in 3 years if sessile serrated polyp.
--- NOTE | 2025-06-15 10:57 | W.ANESPOSTOP ---
Postoperative Evaluation Date, Time and Location Date Performed: 06/15/25 Time Performed: 10:58 Patient Location: Day [facility] Unit Vital Signs Most Recent Imported Vital Signs: Most Recent Vital Signs Temp Pulse Resp BP Pulse Ox 36.5 C 59 L 14 93/56 L 96 06/15/25 10:50 06/15/25 10:50 06/15/25 10:50 06/15/25 10:50 06/15/25 10:50 Pain Score Most Recent Pain Score: Most Recent Pain Score Pain Level 0 06/15/25 10:50 Assessment Mental Status: Awake (Alert & Oriented to Patient Baseline) Airway and Respiratory Function: Patent airway with normal (patient baseline) respiratory exam Cardiovascular Function: Hemodynamically Stable Hydration Status: Adequately Hydrated Nausea & Vomiting: No Nausea or Vomiting Pain: Pt. Denies Any Pain Peripheral Nerve Block: Patient did not receive a nerve block
[2025-06-15 11:20] VITALS: BP 118/72; PULSE 54; RESP 12; TEMP 36.3; O2SAT 98
== END 2025-06-15 11:31 | disposition home or self-care (01) ==
LOC: SUR 09:06
PROVIDERS: PCP Nurse Practitioner Family; Visit Provider Surgery
PROC: 0DJD8ZZ Inspection of Lower Intestinal Tract, Via Natural or Artificial Opening Endoscopic (ICD-10-PCS; CPT 45378; principal; 2025-06-15 10:30)
DX: Z12.11 Encounter for screening for malignant neoplasm of colon (principal); K63.5 Polyp of colon; K64.8 Other hemorrhoids
CPT/HCPCS: 45385; 88305; J2704